=== PATIENT | male | born 1960 | race African-American/Black ===

== ENCOUNTER 2018-09-07 11:47 | Inpatient (IN) | payer OTHER ==
[2018-09-07 12:27] VITALS: BMI 40.4
--- NOTE | 2018-09-07 14:29 | HP ---
COWS - Scale Resting Pulse: 1= [place] 81-100 Sweatin= Chills/Flushing Restless Observation: 1= Difficult to Sit Still Pupil Size: 1= Pupils >than Normal Bone or Joint Aches: 2= Severe Diffuse Aches Runny Nose/ Eye Tearin= Runny Nose/Eyes GI Upset > 30mins: 2= Nausea/Diarrhea Tremor Observation: 2= Slight Tremor Visible Yawning Observation: 1= 1-2x During Session Anxiety or Irritability: 2=Irritable/Anxious Goose Flesh Skin: 0=Smooth Skin COWS Score: 15 CIWA Score Nausea/Vomitin Muscle Tremors: 2 Anxiety: 2 Agitation: 2 Paroxysmal Sweats: 1-Minimal Palms Moist Orientation: 0-Oriented Tacttile Disturbances: 1-Very Mild Itch/Numbness Auditory Disturbances: 0-None Visual Disturbances: 1-Very Mild Sensitivity Headache: 2-Mild CIWA-Ar Total Score: 13 - Admission Criteria [facility] Guidelines: Admission for Medically Managed Detox: Requires at least one of the followin. CIWA greater than 12 2. Seizures within the past 24 hours 3. Delirium tremens within the past 24 hours 4. Hallucinations within the past 24 hours 5. Acute intervention needed for co occurring medical disorder 6. Acute intervention needed for co occurring psychiatric disorder 7. Severe withdrawal that cannot be handled at a lower level of care (continued vomiting, continued diarrhea, abnormal vital signs) requiring intravenous medication and/or fluids 8. Patient presents the following: CIWA greater than 12 Admission Criteria Met: Admission criteria met Admission ROS S - [facility] Chief Complaint: i need help to stop using heroin,alcohol Allergies/Adverse Reactions: Allergies Allergy/AdvReac Type Severity Reaction Status Date / Time No Known Allergies Allergy Verified 09/07/18 14:29 History of Present Illness: this 58 years old male with heroin dependence,seeking detox,withdrawal symptom, last detox 2007 [facility] history of hypertension,type 2 dm, degenerative arthritis both knees ambulation with cane for 2 years pending on knee replacement longest period sobriety 2 years plan for outpatient program also alcoholism Exam Limitations: No Limitations - Ebola screening Have you traveled outside of the country in the last 21 days: No Have you had contact with anyone from an Ebola affected area: No Have you been sick,other than usual withdrawal symptoms: No Do you have a fever: No - Review of Systems Constitutional: Chills, Loss of Appetite, Malaise, Night Sweats, Changes in sleep, Weakness EENT: reports: Tearing, Nose Congestion Respiratory: reports: No Symptoms reported Cardiac: reports: No Symptoms Reported GI: reports: Diarrhea, Nausea, Poor Appetite, Vomiting : reports: No Symptoms Reported Musculoskeletal: reports: Back Pain, Joint Pain, Muscle Pain, Joint Stiffness Integumentary: reports: Dryness Neuro: reports: Headache, Tremors Endocrine: reports: No Symptoms Reported Hematology: reports: No Symptoms Reported Psychiatric: reports: No Sypmtoms Reported Other Systems: Reviewed and Negative Patient History - Patient Medical History Hx Anemia: No Hx Asthma: No Hx Chronic Obstructive Pulmonary Disease (COPD): No Hx Cancer: No Hx Cardiac Disorders: No Hx Congestive Heart Failure: No Hx Hypertension: Yes (on med) Hx Hypercholesterolemia: No Hx Pacemaker: No HX Cerebrovascular Accident: No Hx Seizures: No Hx Dementia: No Hx Diabetes: Yes (type 2 dm) Hx Gastrointestinal Disorders: No Hx Liver Disease: No Hx Genitourinary Disorders: No Hx Sexually Transmitted Disorders: No Hx Renal Disease (ESRD): No Hx Thyroid Disease: No Hx Human Immunodeficiency Virus (HIV): No (last 2017 negative) Hx Hepatitis C: No Hx Depression: No Hx Suicide Attempt: No Hx Bipolar Disorder: No Hx Schizophrenia: No Other Medical History: no suicidal,no homicidal - Patient Surgical History Past Surgical History: No - PPD History Previous Implant?: Yes Documented Results: Negative w/o proof Implanted On Prior [facility] Admission?: No PPD to be Administered?: Yes - Smoking Cessation Smoking history: Never smoked - Substance & Tx. History Hx Alcohol Use: Yes Hx Substance Use: Yes Substance Use Type: Alcohol, Heroin Hx Substance Use Treatment: Yes (2007 [facility]) - Substances Abused Heroin Route: Inhalation Frequency: Daily Amount used: 4 bags Age of first use: 18 Date of Last Use: 09/06/18 Alcohol Route: Oral Frequency: 1-3 times last 30 days Amount used: 1/5th of vodka/6packs of 16 ozs of beer Age of first use: 13 Date of Last Use: 09/06/18 Family Disease History - Family Disease History Family Disease History: Other: Father (alcohol,), Mother (alcohol, ) Admission Physical Exam S - Vital Signs Vital Signs: Vital Signs - 24 hr 09/07/18 11:58 Temperature 99.0 F Pulse Rate 81 Respiratory 18 Rate Blood Pressure 178/91 H - Physical General Appearance: Yes: Moderate Distress, Tremorous, Irritable, Sweating, Anxious HEENTM: Yes: Normal ENT Inspection, DARREN, Pharynx Normal Respiratory: Yes: Within Normal Limits, Lungs Clear, No Respiratory Distress Neck: Yes: Within Normal Limits, Supple, Trachea in good position Breast: Yes: Within Normal Limits Cardiology: Yes: Within Normal Limits, Regular Rhythm, Regular Rate, S1, S2 Abdominal: Yes: Within Normal Limits, Normal Bowel Sounds, Non Tender, Soft Genitourinary: Yes: Within Normal Limits Back: Yes: Within Normal Limits Musculoskeletal: Yes: Back pain, Joint Stiffness, Muscle Pain Extremities: Yes: Tremors Neurological: Yes: hand filer balance wheel II-XII NML intact, Fully Oriented, Alert, Motor Strength 5/5 Integumentary: Yes: Dry Lymphatic: Yes: Within Normal Limits - Diagnostic (1) Opioid dependence with withdrawal Current Visit: Yes Status: Acute (2) Alcohol dependence with uncomplicated withdrawal Current Visit: Yes Status: Acute (3) Use of cane as ambulatory aid Current Visit: Yes Status: Acute (4) Degenerative arthritis of knee Current Visit: Yes Status: Chronic Cleared for Admission [facility] - Detox or Rehab [facility] Level of Care: Medically Managed Detox Regimen/Protocol: Methadone/Librium S Breath Alcohol Content Breath Alcohol Content: 0 Urine Drug Screen - Results Drug Screen Negative: No Urine Drug Screen Results: OPI-Opiates, FEN-Fentanyl, BUP-Suboxone
[2018-09-07] MEDS ORDERED: P-EPHED 60MG/TRIPROLIDI 2.5MG TABLET PO PRN (14:55)
[2018-09-07] MEDS ORDERED: MAGNESIUM CITRATE 300 ML BOTTLE PO PRN (14:55)
[2018-09-07] MEDS ORDERED: IBUPROFEN 400 MG TABLET (FP) PO PRN (14:55)
[2018-09-07] MEDS ORDERED: ACETAMINOPHEN 325 MG TABLET (FP) PO PRN (14:55)
[2018-09-07] MEDS ORDERED: guaiFENesin/D-METHORPHAN HB 10 ML UNIT-DOSE CUPS PO PRN (14:55)
[2018-09-07] MEDS ORDERED: MENTHOL/PHENOL 1 EACH UD MM PRN (14:55)
[2018-09-07] MEDS ORDERED: MAGNESIUM HYDROX 2400MG/30ML ORAL SUSPENSION 30 ML CUP PO PRN (14:55)
[2018-09-07] MEDS ORDERED: chlordiazePOXIDE HCL 25 MG CAPSULE PO PRN (14:55)
[2018-09-07] MEDS ORDERED: LOPERAMIDE HCL 2 MG CAPSULE PO PRN (14:55)
[2018-09-07] MEDS ORDERED: hydrOXYzine PAMOATE 50 MG CAPSULE (FP) PO PRN (14:55)
[2018-09-07] MEDS ORDERED: MAG HYDROX/AL HYDROX/SIMETH 30 ML UNIT-DOSE CUP PO PRN (14:55)
[2018-09-07] MEDS ORDERED: IBUPROFEN 600 MG TABLET (FP) PO PRN (14:59)
[2018-09-07] MEDS ORDERED: METHADONE HCL 10 MG TABLET (FOR DETOX USE ONLY) PO ONE ×2 (15:15→23:00)
[2018-09-07] MEDS: amLODIPine BESYLATE 10 MG TABLET (FP) PO SCH (17:06)
[2018-09-07] MEDS: chlordiazePOXIDE HCL 25 MG CAPSULE PO SCH ×2 (17:06→22:28)
[2018-09-07] MEDS: LISINOPRIL 20 MG TABLET (FP) PO SCH (17:06)
[2018-09-07] MEDS: THIAMINE HCL 100 MG TABLET (FP) PO SCH (22:27)
[2018-09-07] MEDS: MELATONIN 5 MG TABLETS PO PRN (22:28)
[2018-09-07 22:45] LABS: URINE APPEARANCE CLEAR; URINE BILIRUBIN NEGATIVE (<2.0 mg/dL); URINE COLOR YELLOW; URINE GLUCOSE (UA) NEGATIVE (NEGATIVE); URINE KETONE NEGATIVE (NEGATIVE); URINE LEUK ESTERASE NEGATIVE (NEGATIVE); URINE NITRITE NEGATIVE (NEGATIVE); URINE PROTEIN NEGATIVE (NEGATIVE)
[2018-09-08] MEDS: chlordiazePOXIDE HCL 25 MG CAPSULE PO SCH ×4 (06:08→22:20)
[2018-09-08] MEDS: metFORMIN HCL 500 MG TABLET (FP) PO SCH ×2 (06:10→17:30)
[2018-09-08] MEDS ORDERED: METHADONE HCL 10 MG TABLET (FOR DETOX USE ONLY) PO SCH (10:00)
[2018-09-08 10:13] LABS: HEMATOCRIT 38.5 % (35.4-49); HEMOGLOBIN 13.1 GM/dL (11.7-16.9); MCH 30.7 pg (25.7-33.7); MCHC 33.9 g/dl (32.0-35.9); MEAN CELL VOLUME 90.5 fl (80-96); MEAN PLT VOLUME 8.4 fl (7.5-11.1); PLATELET COUNT 345 K/MM3 (134-434); RBC 4.26 M/mm3 (4.00-5.60); RDW 14.9 % (11.9-15.9); WHITE BLOOD COUNT 6.7 K/mm3 (4.0-10.0)
[2018-09-08] MEDS: LISINOPRIL 20 MG TABLET (FP) PO SCH (10:38)
[2018-09-08] MEDS: amLODIPine BESYLATE 10 MG TABLET (FP) PO SCH (10:38)
[2018-09-08] MEDS: PRENATAL VITAMINS W/ FOLIC ACID TABLET (FP) PO SCH (10:38)
[2018-09-08 11:40] LABS: ALBUMIN 3.6 g/dl (3.4-5.0); ALK PHOS 75 U/L (45-117); ANION GAP 11 MMOL/L (8-16); BILIRUBIN,TOTAL 0.3 mg/dL (0.2-1); BLOOD UREA NITROGEN 14 mg/dL (7-18); CALCIUM 9.2 mg/dL (8.5-10.1); CHLORIDE 104 mmol/L (98-107); CO2 27 mmol/L (21-32); CREATININE 1.1 mg/dL (0.55-1.3); GLUCOSE,RANDOM 113 mg/dL (74-106); POTASSIUM 4.3 mmol/L (3.5-5.1); SGOT/AST 16 U/L (15-37); SGPT/ALT 23 U/L (13-61); SODIUM 143 mmol/L (136-145); TOT PROT 7.4 g/dl (6.4-8.2)
--- NOTE | 2018-09-08 14:30 | PN ---
S CIWA - CIWA Score Nausea/Vomitin Muscle Tremors: 4-Moderate,w/Arms Extend Anxiety: 4-Mod. Anxious/Guarded Agitation: 4-Moderately Restless Paroxysmal Sweats: 3 Orientation: 0-Oriented Tacttile Disturbances: 0-None Auditory Disturbances: 0-None Visual Disturbances: 0-None Headache: 0-None Present CIWA-Ar Total Score: 17 [facility] COWS - Scale Resting Pulse: 0= [place] 80 or Below Sweatin=Flushed/Facial Moisture Restless Observation: 3= Extraneous Movement Pupil Size: 0= Normal to Room Light Bone or Joint Aches: 2= Severe Diffuse Aches Runny Nose/ Eye Tearin= Runny Nose/Eyes GI Upset > 30mins: 3= Vomiting/Diarrhea Tremor Observation of Outstretched Hands: 2= Slight Tremor Visible Yawning Observation: 0= None Anxiety or Irritability: 2=Irritable/Anxious Goose Flesh Skin: 0=Smooth Skin COWS Score: 16 S Progress Note (SOAP) Subjective: Stomach ache, interrupted sleep Objective: 09/08/18 14:29 Last Vital Signs Temp Pulse Resp BP Pulse Ox 97.4 F L 72 18 117/66 09/08/18 09:30 09/08/18 09:30 09/08/18 09:30 09/08/18 09:30 Laboratory Tests 09/07/18 09/07/18 09/07/18 12:45 15:45 17:03 WBC RBC Hgb Hct MCV MCH MCHC RDW Plt Count MPV Sodium Potassium Chloride Carbon Dioxide Anion Gap BUN Creatinine Creat Clearance w eGFR POC Glucometer 158 105 Random Glucose Calcium Total Bilirubin AST ALT Alkaline Phosphatase Total Protein Albumin Urine Color Yellow Urine Appearance Clear Urine pH 6.0 Ur Specific [place] 1.023 Urine Protein Negative Urine Glucose (UA) Negative Urine Ketones Negative Urine Blood Negative Urine Nitrite Negative Urine Bilirubin Negative Urine Urobilinogen 2.0 Ur Leukocyte Esterase Negative 09/08/18 09/08/18 09/08/18 06:00 06:00 06:07 WBC 6.7 RBC 4.26 Hgb 13.1 Hct 38.5 MCV 90.5 MCH 30.7 MCHC 33.9 RDW 14.9 Plt Count 345 MPV 8.4 Sodium 143 Potassium 4.3 Chloride 104 Carbon Dioxide 27 Anion Gap 11 BUN 14 Creatinine 1.1 Creat Clearance w eGFR > 60 POC Glucometer 115 Random Glucose 113 H Calcium 9.2 Total Bilirubin 0.3 AST 16 ALT 23 Alkaline Phosphatase 75 Total Protein 7.4 Albumin 3.6 Urine Color Urine Appearance Urine pH Ur Specific [place] Urine Protein Urine Glucose (UA) Urine Ketones Urine Blood Urine Nitrite Urine Bilirubin Urine Urobilinogen Ur Leukocyte Esterase Labs reviewed Assessment: 09/08/18 14:29 Withdrawal symptoms Plan: Continue detox Encouraged PO water intake
[2018-09-08] MEDS: THIAMINE HCL 100 MG TABLET (FP) PO SCH (22:20)
[2018-09-08] MEDS: MELATONIN 5 MG TABLETS PO PRN (22:21)
[2018-09-09] MEDS: chlordiazePOXIDE HCL 25 MG CAPSULE PO SCH ×2 (05:55→10:38)
[2018-09-09] MEDS: metFORMIN HCL 500 MG TABLET (FP) PO SCH ×2 (06:02→17:49)
[2018-09-09] MEDS: METHADONE HCL 5 MG TABLET (FOR DETOX USE ONLY) PO SCH (10:37)
[2018-09-09] MEDS: LISINOPRIL 20 MG TABLET (FP) PO SCH (10:39)
[2018-09-09] MEDS: amLODIPine BESYLATE 10 MG TABLET (FP) PO SCH (10:39)
[2018-09-09] MEDS: PRENATAL VITAMINS W/ FOLIC ACID TABLET (FP) PO SCH (10:39)
--- NOTE | 2018-09-09 11:17 | PN ---
S CIWA - CIWA Score Nausea/Vomitin-No Nausea/No Vomiting Muscle Tremors: 4-Moderate,w/Arms Extend Anxiety: 4-Mod. Anxious/Guarded Agitation: 4-Moderately Restless Paroxysmal Sweats: 1-Minimal Palms Moist Orientation: 0-Oriented Tacttile Disturbances: 0-None Auditory Disturbances: 0-None Visual Disturbances: 0-None Headache: 0-None Present CIWA-Ar Total Score: 13 S COWS - Scale Resting Pulse: 0= [place] 80 or Below Sweatin= Chills/Flushing Restless Observation: 3= Extraneous Movement Pupil Size: 0= Normal to Room Light Bone or Joint Aches: 1= Mild Discomfort Runny Nose/ Eye Tearin= None GI Upset > 30mins: 0= None Tremor Observation of Outstretched Hands: 2= Slight Tremor Visible Yawning Observation: 2= >3x During Session Anxiety or Irritability: 2=Irritable/Anxious Goose Flesh Skin: 0=Smooth Skin COWS Score: 11 S Progress Note (SOAP) Subjective: PT C/O ANXIETY, SWEATS, TREMORS, YAWNING Objective: 09/09/18 11:17 Vital Signs 09/09/18 09/09/18 09/09/18 03:30 06:14 09:40 Temperature 97.3 F L 99.1 F Pulse Rate 56 L 73 Respiratory 18 20 16 Rate Blood Pressure 136/82 123/72 Laboratory Tests 09/07/18 09/07/18 09/07/18 12:45 15:45 17:03 WBC RBC Hgb Hct MCV MCH MCHC RDW Plt Count MPV Sodium Potassium Chloride Carbon Dioxide Anion Gap BUN Creatinine Creat Clearance w eGFR POC Glucometer 158 105 Random Glucose Calcium Total Bilirubin AST ALT Alkaline Phosphatase Total Protein Albumin Urine Color Yellow Urine Appearance Clear Urine pH 6.0 Ur Specific [place] 1.023 Urine Protein Negative Urine Glucose (UA) Negative Urine Ketones Negative Urine Blood Negative Urine Nitrite Negative Urine Bilirubin Negative Urine Urobilinogen 2.0 Ur Leukocyte Esterase Negative RPR Titer 09/08/18 09/08/18 09/08/18 06:00 06:00 06:00 WBC 6.7 RBC 4.26 Hgb 13.1 Hct 38.5 MCV 90.5 MCH 30.7 MCHC 33.9 RDW 14.9 Plt Count 345 MPV 8.4 Sodium 143 Potassium 4.3 Chloride 104 Carbon Dioxide 27 Anion Gap 11 BUN 14 Creatinine 1.1 Creat Clearance w eGFR > 60 POC Glucometer Random Glucose 113 H Calcium 9.2 Total Bilirubin 0.3 AST 16 ALT 23 Alkaline Phosphatase 75 Total Protein 7.4 Albumin 3.6 Urine Color Urine Appearance Urine pH Ur Specific [place] Urine Protein Urine Glucose (UA) Urine Ketones Urine Blood Urine Nitrite Urine Bilirubin Urine Urobilinogen Ur Leukocyte Esterase RPR Titer Nonreactive 09/08/18 09/09/18 06:07 05:54 WBC RBC Hgb Hct MCV MCH MCHC RDW Plt Count MPV Sodium Potassium Chloride Carbon Dioxide Anion Gap BUN Creatinine Creat Clearance w eGFR POC Glucometer 115 102 Random Glucose Calcium Total Bilirubin AST ALT Alkaline Phosphatase Total Protein Albumin Urine Color Urine Appearance Urine pH Ur Specific [place] Urine Protein Urine Glucose (UA) Urine Ketones Urine Blood Urine Nitrite Urine Bilirubin Urine Urobilinogen Ur Leukocyte Esterase RPR Titer Assessment: 09/09/18 11:18 WITHDRAWAL SX Plan: CONTINUE DETOX INCREASE PO FLUIDS.
[2018-09-09] MEDS: chlordiazePOXIDE 5 MG CAPSULE PO SCH ×2 (17:48→22:14)
[2018-09-09] MEDS: THIAMINE HCL 100 MG TABLET (FP) PO SCH (22:13)
[2018-09-09] MEDS: MELATONIN 5 MG TABLETS PO PRN (22:14)
[2018-09-10] MEDS: chlordiazePOXIDE 5 MG CAPSULE PO SCH ×2 (06:00→10:49)
[2018-09-10] MEDS: metFORMIN HCL 500 MG TABLET (FP) PO SCH ×2 (06:05→17:35)
[2018-09-10] MEDS: PRENATAL VITAMINS W/ FOLIC ACID TABLET (FP) PO SCH (10:50)
[2018-09-10] MEDS: LISINOPRIL 20 MG TABLET (FP) PO SCH (10:50)
[2018-09-10] MEDS: METHADONE HCL 5 MG TABLET (FOR DETOX USE ONLY) PO SCH (10:50)
[2018-09-10] MEDS: amLODIPine BESYLATE 10 MG TABLET (FP) PO SCH (10:50)
--- NOTE | 2018-09-10 14:09 | PN ---
[facility] Progress Note (SOAP) Subjective: Chills, yawning, runny nose, interrupted sleep Objective: 09/10/18 14:06 Last Vital Signs Temp Pulse Resp BP Pulse Ox 97.5 F L 75 18 145/88 09/10/18 09:55 09/10/18 09:55 09/10/18 09:55 09/10/18 09:55 Elevated b/p: 145/88 (h/o htn, on medication) Laboratory Tests 09/07/18 09/07/18 09/07/18 12:45 15:45 17:03 WBC RBC Hgb Hct MCV MCH MCHC RDW Plt Count MPV Sodium Potassium Chloride Carbon Dioxide Anion Gap BUN Creatinine Creat Clearance w eGFR POC Glucometer 158 105 Random Glucose Calcium Total Bilirubin AST ALT Alkaline Phosphatase Total Protein Albumin Urine Color Yellow Urine Appearance Clear Urine pH 6.0 Ur Specific [place] 1.023 Urine Protein Negative Urine Glucose (UA) Negative Urine Ketones Negative Urine Blood Negative Urine Nitrite Negative Urine Bilirubin Negative Urine Urobilinogen 2.0 Ur Leukocyte Esterase Negative RPR Titer 09/08/18 09/08/18 09/08/18 06:00 06:00 06:00 WBC 6.7 RBC 4.26 Hgb 13.1 Hct 38.5 MCV 90.5 MCH 30.7 MCHC 33.9 RDW 14.9 Plt Count 345 MPV 8.4 Sodium 143 Potassium 4.3 Chloride 104 Carbon Dioxide 27 Anion Gap 11 BUN 14 Creatinine 1.1 Creat Clearance w eGFR > 60 POC Glucometer Random Glucose 113 H Calcium 9.2 Total Bilirubin 0.3 AST 16 ALT 23 Alkaline Phosphatase 75 Total Protein 7.4 Albumin 3.6 Urine Color Urine Appearance Urine pH Ur Specific [place] Urine Protein Urine Glucose (UA) Urine Ketones Urine Blood Urine Nitrite Urine Bilirubin Urine Urobilinogen Ur Leukocyte Esterase RPR Titer Nonreactive 09/08/18 09/09/18 09/09/18 06:07 05:54 16:17 WBC RBC Hgb Hct MCV MCH MCHC RDW Plt Count MPV Sodium Potassium Chloride Carbon Dioxide Anion Gap BUN Creatinine Creat Clearance w eGFR POC Glucometer 115 102 96 Random Glucose Calcium Total Bilirubin AST ALT Alkaline Phosphatase Total Protein Albumin Urine Color Urine Appearance Urine pH Ur Specific [place] Urine Protein Urine Glucose (UA) Urine Ketones Urine Blood Urine Nitrite Urine Bilirubin Urine Urobilinogen Ur Leukocyte Esterase RPR Titer 09/10/18 06:04 WBC RBC Hgb Hct MCV MCH MCHC RDW Plt Count MPV Sodium Potassium Chloride Carbon Dioxide Anion Gap BUN Creatinine Creat Clearance w eGFR POC Glucometer 82 Random Glucose Calcium Total Bilirubin AST ALT Alkaline Phosphatase Total Protein Albumin Urine Color Urine Appearance Urine pH Ur Specific [place] Urine Protein Urine Glucose (UA) Urine Ketones Urine Blood Urine Nitrite Urine Bilirubin Urine Urobilinogen Ur Leukocyte Esterase RPR Titer Labs reviewed 09/10/18 14:08 Assessment: 09/10/18 14:07 Withdrawal symptoms Plan: Continue detox Encouraged PO water intake
[2018-09-10] MEDS: chlordiazePOXIDE HCL 10 MG CAPSULE PO SCH ×2 (17:35→22:09)
[2018-09-10] MEDS: THIAMINE HCL 100 MG TABLET (FP) PO SCH (22:09)
[2018-09-10] MEDS: MELATONIN 5 MG TABLETS PO PRN (22:10)
[2018-09-11] MEDS: chlordiazePOXIDE HCL 10 MG CAPSULE PO SCH ×2 (05:19→10:25)
[2018-09-11] MEDS: metFORMIN HCL 500 MG TABLET (FP) PO SCH ×2 (07:38→17:34)
[2018-09-11] MEDS ORDERED: METHADONE HCL 10 MG TABLET (FOR DETOX USE ONLY) PO SCH (10:00)
[2018-09-11] MEDS: LISINOPRIL 20 MG TABLET (FP) PO SCH (10:25)
[2018-09-11] MEDS: PRENATAL VITAMINS W/ FOLIC ACID TABLET (FP) PO SCH (10:28)
[2018-09-11] MEDS: amLODIPine BESYLATE 10 MG TABLET (FP) PO SCH (10:28)
--- NOTE | 2018-09-11 11:55 | PN ---
[facility] Progress Note (SOAP) Subjective: feeling better no body aches no tremor less sweat discuss DM diet Objective: 09/11/18 11:54 Vital Signs Temperature 97.2 F L 09/11/18 09:17 Pulse Rate 78 09/11/18 09:17 Respiratory Rate 18 12 09:17 Blood Pressure 137/92 09/11/18 09:17 O2 Sat by Pulse Oximetry (%) Laboratory Last Values WBC 6.7 K/mm3 (4.0-10.0) 09/08/18 06:00 RBC 4.26 M/mm3 (4.00-5.60) 09/08/18 06:00 Hgb 13.1 GM/dL (11.7-16.9) 09/08/18 06:00 Hct 38.5 % (35.4-49) 09/08/18 06:00 MCV 90.5 fl (80-96) 09/08/18 06:00 MCH 30.7 pg (25.7-33.7) 09/08/18 06:00 MCHC 33.9 g/dl (32.0-35.9) 09/08/18 06:00 RDW 14.9 % (11.9-15.9) 09/08/18 06:00 Plt Count 345 K/MM3 (134-434) 09/08/18 06:00 MPV 8.4 fl (7.5-11.1) 09/08/18 06:00 Sodium 143 mmol/L (136-145) 09/08/18 06:00 Potassium 4.3 mmol/L (3.5-5.1) 09/08/18 06:00 Chloride 104 mmol/L (98-107) 09/08/18 06:00 Carbon Dioxide 27 mmol/L (21-32) 09/08/18 06:00 Anion Gap 11 MMOL/L (8-16) 09/08/18 06:00 BUN 14 mg/dL (7-18) 09/08/18 06:00 Creatinine 1.1 mg/dL (0.55-1.3) 09/08/18 06:00 Creat Clearance w eGFR > 60 (>60) 09/08/18 06:00 POC Glucometer 107 UNITS (80-120) 09/11/18 05:19 Random Glucose 113 mg/dL (74-106) H 09/08/18 06:00 Calcium 9.2 mg/dL (8.5-10.1) 09/08/18 06:00 Total Bilirubin 0.3 mg/dL (0.2-1) 09/08/18 06:00 AST 16 U/L (15-37) 09/08/18 06:00 ALT 23 U/L (13-61) 09/08/18 06:00 Alkaline Phosphatase 75 U/L (45-117) 09/08/18 06:00 Total Protein 7.4 g/dl (6.4-8.2) 09/08/18 06:00 Albumin 3.6 g/dl (3.4-5.0) 09/08/18 06:00 Urine Color Yellow 09/07/18 12:45 Urine Appearance Clear 09/07/18 12:45 Urine pH 6.0 (5.0-8.0) 09/07/18 12:45 Ur Specific [place] 1.023 (1.010-1.035) 09/07/18 12:45 Urine Protein Negative (NEGATIVE) 09/07/18 12:45 Urine Glucose (UA) Negative (NEGATIVE) 09/07/18 12:45 Urine Ketones Negative (NEGATIVE) 09/07/18 12:45 Urine Blood Negative (NEGATIVE) 09/07/18 12:45 Urine Nitrite Negative (NEGATIVE) 09/07/18 12:45 Urine Bilirubin Negative (<2.0 mg/dL) 09/07/18 12:45 Urine Urobilinogen 2.0 mg/dL (0.2-1.0) 09/07/18 12:45 Ur Leukocyte Esterase Negative (NEGATIVE) 09/07/18 12:45 RPR Titer Nonreactive (NONREACTIVE) 09/08/18 06:00 lab noted Assessment: 09/11/18 11:55 mild withdrawal sx Plan: medically supervised detox
[2018-09-11] MEDS: THIAMINE HCL 100 MG TABLET (FP) PO SCH (22:14)
[2018-09-12] MEDS ORDERED: METHADONE HCL 5 MG TABLET (FOR DETOX USE ONLY) PO SCH (06:00)
[2018-09-12] MEDS: metFORMIN HCL 500 MG TABLET (FP) PO SCH (06:14)
--- NOTE | 2018-09-12 08:33 | DS ---
[facility] Detox Discharge Summary Admission Date: 09/07/18 Discharge Date: 09/12/18 - History Present History: Opioid Dependence Additional Comments: 58 years old male admitted on 09/07/18 for opiate withdrawal stability completed opiate detox regimen tolerate well alert no acute distress - Physical Exam Results Vital Signs: Vital Signs Temperature 97.9 F 09/12/18 06:20 Pulse Rate 66 09/12/18 06:20 Respiratory Rate 18 09/12/18 06:30 Blood Pressure 122/69 09/12/18 06:20 O2 Sat by Pulse Oximetry (%) Pertinent Admission Physical Exam Findings: opiate withdrawal sx Vital Signs Temperature 97.1 F L 09/12/18 09:32 Pulse Rate 73 09/12/18 09:32 Respiratory Rate 18 09/12/18 09:32 Blood Pressure 130/87 09/12/18 09:32 O2 Sat by Pulse Oximetry (%) Laboratory Last Values WBC 6.7 K/mm3 (4.0-10.0) 09/08/18 06:00 RBC 4.26 M/mm3 (4.00-5.60) 09/08/18 06:00 Hgb 13.1 GM/dL (11.7-16.9) 09/08/18 06:00 Hct 38.5 % (35.4-49) 09/08/18 06:00 MCV 90.5 fl (80-96) 09/08/18 06:00 MCH 30.7 pg (25.7-33.7) 09/08/18 06:00 MCHC 33.9 g/dl (32.0-35.9) 09/08/18 06:00 RDW 14.9 % (11.9-15.9) 09/08/18 06:00 Plt Count 345 K/MM3 (134-434) 09/08/18 06:00 MPV 8.4 fl (7.5-11.1) 09/08/18 06:00 Sodium 143 mmol/L (136-145) 09/08/18 06:00 Potassium 4.3 mmol/L (3.5-5.1) 09/08/18 06:00 Chloride 104 mmol/L (98-107) 09/08/18 06:00 Carbon Dioxide 27 mmol/L (21-32) 09/08/18 06:00 Anion Gap 11 MMOL/L (8-16) 09/08/18 06:00 BUN 14 mg/dL (7-18) 09/08/18 06:00 Creatinine 1.1 mg/dL (0.55-1.3) 09/08/18 06:00 Creat Clearance w eGFR > 60 (>60) 09/08/18 06:00 POC Glucometer 126 UNITS (80-120) 09/12/18 05:49 Random Glucose 113 mg/dL (74-106) H 09/08/18 06:00 Calcium 9.2 mg/dL (8.5-10.1) 09/08/18 06:00 Total Bilirubin 0.3 mg/dL (0.2-1) 09/08/18 06:00 AST 16 U/L (15-37) 09/08/18 06:00 ALT 23 U/L (13-61) 09/08/18 06:00 Alkaline Phosphatase 75 U/L (45-117) 09/08/18 06:00 Total Protein 7.4 g/dl (6.4-8.2) 09/08/18 06:00 Albumin 3.6 g/dl (3.4-5.0) 09/08/18 06:00 Urine Color Yellow 09/07/18 12:45 Urine Appearance Clear 09/07/18 12:45 Urine pH 6.0 (5.0-8.0) 09/07/18 12:45 Ur Specific [place] 1.023 (1.010-1.035) 09/07/18 12:45 Urine Protein Negative (NEGATIVE) 09/07/18 12:45 Urine Glucose (UA) Negative (NEGATIVE) 09/07/18 12:45 Urine Ketones Negative (NEGATIVE) 09/07/18 12:45 Urine Blood Negative (NEGATIVE) 09/07/18 12:45 Urine Nitrite Negative (NEGATIVE) 09/07/18 12:45 Urine Bilirubin Negative (<2.0 mg/dL) 09/07/18 12:45 Urine Urobilinogen 2.0 mg/dL (0.2-1.0) 09/07/18 12:45 Ur Leukocyte Esterase Negative (NEGATIVE) 09/07/18 12:45 RPR Titer Nonreactive (NONREACTIVE) 09/08/18 06:00 lab noted - Treatment Hospital Course: Detox Protocol Followed, Detoxed Safely, Responded well, Discharged Condition Good, Rehab Referral Accepted Patient has Accepted a Rehab Referral to: Dr. Prince - Medication Discharge Medications: Ambulatory Orders Amlodipine Besylate [Norvasc -] 10 mg PO DAILY 09/07/18 Lisinopril [Prinivil] 20 mg PO DAILY 09/07/18 Metformin HCl [Glucophage] 500 mg PO BID 09/07/18 - Diagnosis (1) Opioid dependence with withdrawal Status: Acute (2) HTN (hypertension), benign Status: Chronic (3) Type 2 diabetes mellitus with hyperglycemia Status: Chronic Qualifiers: Diabetes mellitus intermediate teacher insulin use: without intermediate teacher use Qualified Code(s): E11.65 - Type 2 diabetes mellitus with hyperglycemia (4) Use of cane as ambulatory aid Status: Chronic - AMA Did Patient Leave Against Medical Advice: No
[2018-09-12] MEDS: PRENATAL VITAMINS W/ FOLIC ACID TABLET (FP) PO SCH (09:27)
[2018-09-12] MEDS: amLODIPine BESYLATE 10 MG TABLET (FP) PO SCH (09:27)
[2018-09-12] MEDS: LISINOPRIL 20 MG TABLET (FP) PO SCH (09:27)
[2018-09-12 09:33] VITALS: BP 130/87; PULSE 73; TEMP 97.1
== END 2018-09-12 09:46 | disposition home or self-care (01) | DRG 773 ==
LOC: YASAS 11:47 → Y3N 14:56
PROC: HZ2ZZZZ Detoxification Services for Substance Abuse Treatment (ICD-10-PCS; principal; 2018-09-07)
DX: F11.23 Opioid dependence with withdrawal (principal); F10.230 Alcohol dependence with withdrawal, uncomplicated; I10 Essential (primary) hypertension; E11.65 Type 2 diabetes mellitus with hyperglycemia; Z79.84 Long term (current) use of oral hypoglycemic drugs; M17.11 Unilateral primary osteoarthritis, right knee; M17.12 Unilateral primary osteoarthritis, left knee; R26.89 Other abnormalities of gait and mobility; Z99.89 Dependence on other enabling machines and devices
CPT/HCPCS: 36415; 80053; 81003; 82962; 85027; 86593

== ENCOUNTER 2022-09-09 10:40 | Inpatient (IN) | payer OTHER ==
[2022-09-09] MEDS ORDERED: LOPERAMIDE HCL 2 MG CAPSULE PO PRN (13:28)
[2022-09-09] MEDS ORDERED: diazePAM 5 MG TABLET PO PRN (13:28)
[2022-09-09] MEDS ORDERED: IBUPROFEN 600 MG TABLET (FP) PO PRN (13:28)
[2022-09-09] MEDS ORDERED: MAG HYDROX/AL HYDROX/SIMETH 30 ML UNIT-DOSE CUP PO PRN (13:28)
[2022-09-09] MEDS ORDERED: NALOXONE HCL (KLOXXADO) 8 MG SPRAY NS PRN (13:28)
[2022-09-09] MEDS ORDERED: ONDANSETRON *ODT* 4 MG TABLET SL PRN (13:28)
[2022-09-09] MEDS ORDERED: POLYETHYLENE GLYCOL (HEALTHYLAX) 3350 17 GM PACKET PO PRN (13:28)
[2022-09-09] MEDS ORDERED: DICYCLOMINE HCL 10 MG CAPSULE PO PRN (13:28)
[2022-09-09] MEDS ORDERED: MAGNESIUM HYDROX 2400MG/30ML ORAL SUSPENSION 30 ML CUP PO PRN (13:28)
[2022-09-09] MEDS ORDERED: BISMUTH SUBSALICYLATE 262 MG/15 ML BTL PO PRN (13:28)
[2022-09-09] MEDS ORDERED: BENZOCAINE/MENTHOL (CHLORASEPTIC ) LOZENGE MM PRN (13:28)
[2022-09-09] MEDS ORDERED: ACETAMINOPHEN 325 MG TABLET (FP) PO PRN ×2 (13:28)
[2022-09-09] MEDS ORDERED: hydrOXYzine PAMOATE 25 MG CAPSULE (FP) PO PRN (13:28)
[2022-09-09 14:09] VITALS: BMI 43.0
[2022-09-09] MEDS: diazePAM 5 MG TABLET PO SCH ×2 (17:26→22:05)
[2022-09-09] MEDS: metFORMIN HCL 500 MG TABLET (FP) PO SCH (17:27)
[2022-09-09] MEDS: PRENATAL VITAMINS W/ FOLIC ACID TABLET (FP) PO SCH (17:33)
[2022-09-09] MEDS: MELATONIN 5 MG TABLETS PO SCH (22:05)
[2022-09-09] MEDS: THIAMINE HCL 100 MG TABLET (FP) PO SCH (22:05)
[2022-09-10] MEDS: diazePAM 5 MG TABLET PO SCH ×4 (05:17→22:17)
[2022-09-10] MEDS: metFORMIN HCL 500 MG TABLET (FP) PO SCH ×2 (06:57→17:55)
[2022-09-10] MEDS: amLODIPine BESYLATE 10 MG TABLET (FP) PO SCH (10:20)
[2022-09-10] MEDS: PRENATAL VITAMINS W/ FOLIC ACID TABLET (FP) PO SCH (10:20)
[2022-09-10] MEDS: LISINOPRIL 20 MG TABLET PO SCH (10:20)
[2022-09-10 10:43] LABS: HEMATOCRIT 31.9 % (35.4-49); HEMOGLOBIN 10.3 GM/dL (11.7-16.9); MCH 30.5 pg (25.7-33.7); MCHC 32.4 g/dl (32.0-35.9); MEAN CELL VOLUME 94.1 fl (80-96); MEAN PLT VOLUME 7.3 fl (7.5-11.1); PLATELET COUNT 246 10^3/uL (134-434); RBC 3.39 M/mm3 (4.00-5.60); RDW 17.3 % (11.9-15.9); WHITE BLOOD COUNT 5.7 K/mm3 (4.0-10.0)
[2022-09-10] MEDS ORDERED: methaDONE HCL 10 MG TABLET PO SCH (11:45)
[2022-09-10 11:59] LABS: ALBUMIN 2.6 g/dl (3.4-5.0); BILIRUBIN,TOTAL 0.6 mg/dL (0.2-1); BLOOD UREA NITROGEN 15.2 mg/dL (7-18); CALCIUM 8.8 mg/dL (8.5-10.1); CREATININE 1.1 mg/dL (0.55-1.3); TOT PROT 6.2 g/dl (6.4-8.2)
[2022-09-10] MEDS: methaDONE 40 MG, methaDONE 30 MG PO SCH (11:59)
[2022-09-10] MEDS: LACTULOSE 20 GM/30 ML UDC (FOR ORAL USE ONLY) PO SCH ×3 (14:56→22:16)
[2022-09-10] MEDS: THIAMINE HCL 100 MG TABLET (FP) PO SCH (22:16)
[2022-09-10] MEDS: MELATONIN 5 MG TABLETS PO SCH (22:16)
[2022-09-11] MEDS: diazePAM 5 MG TABLET PO SCH ×3 (05:34→22:30)
[2022-09-11] MEDS: methaDONE 40 MG, methaDONE 30 MG PO SCH (05:34)
[2022-09-11] MEDS: metFORMIN HCL 500 MG TABLET (FP) PO SCH ×2 (06:38→17:56)
[2022-09-11] MEDS: LACTULOSE 20 GM/30 ML UDC (FOR ORAL USE ONLY) PO SCH ×4 (10:21→22:34)
[2022-09-11] MEDS: amLODIPine BESYLATE 10 MG TABLET (FP) PO SCH (10:22)
[2022-09-11] MEDS: LISINOPRIL 20 MG TABLET PO SCH (10:22)
[2022-09-11] MEDS: PRENATAL VITAMINS W/ FOLIC ACID TABLET (FP) PO SCH (10:22)
[2022-09-11] MEDS: THIAMINE HCL 100 MG TABLET (FP) PO SCH (22:29)
[2022-09-11] MEDS: MELATONIN 5 MG TABLETS PO SCH (22:30)
[2022-09-11] MEDS: METHOCARBAMOL 500 MG TABLET PO PRN (22:32)
[2022-09-12] MEDS: diazePAM 5 MG TABLET PO SCH ×2 (05:43→18:18)
[2022-09-12] MEDS: methaDONE 40 MG, methaDONE 30 MG PO SCH (05:44)
[2022-09-12] MEDS: METHOCARBAMOL 500 MG TABLET PO PRN ×2 (05:46→22:21)
[2022-09-12] MEDS: IBUPROFEN 400 MG TABLET (FP) PO PRN (05:46)
[2022-09-12] MEDS: metFORMIN HCL 500 MG TABLET (FP) PO SCH ×2 (07:23→18:18)
[2022-09-12] MEDS: PRENATAL VITAMINS W/ FOLIC ACID TABLET (FP) PO SCH (10:18)
[2022-09-12] MEDS: amLODIPine BESYLATE 10 MG TABLET (FP) PO SCH (10:18)
[2022-09-12] MEDS: LACTULOSE 20 GM/30 ML UDC (FOR ORAL USE ONLY) PO SCH ×4 (10:18→22:20)
[2022-09-12] MEDS: LISINOPRIL 20 MG TABLET PO SCH (10:18)
[2022-09-12 17:09] VITALS: RESP 18
[2022-09-12] MEDS: THIAMINE HCL 100 MG TABLET (FP) PO SCH (22:20)
[2022-09-12] MEDS: MELATONIN 5 MG TABLETS PO SCH (22:20)
[2022-09-13] MEDS: methaDONE 40 MG, methaDONE 30 MG PO SCH (05:46)
[2022-09-13] MEDS: IBUPROFEN 400 MG TABLET (FP) PO PRN (05:49)
[2022-09-13] MEDS: METHOCARBAMOL 500 MG TABLET PO PRN (05:49)
[2022-09-13] MEDS ORDERED: diazePAM 5 MG TABLET PO ONE (06:00)
[2022-09-13] MEDS: metFORMIN HCL 500 MG TABLET (FP) PO SCH (07:03)
[2022-09-13 09:21] VITALS: TEMP 96.8
[2022-09-13] MEDS: amLODIPine BESYLATE 10 MG TABLET (FP) PO SCH (10:24)
[2022-09-13] MEDS: PRENATAL VITAMINS W/ FOLIC ACID TABLET (FP) PO SCH (10:24)
[2022-09-13] MEDS: LISINOPRIL 20 MG TABLET PO SCH (10:25)
[2022-09-13] MEDS: LACTULOSE 20 GM/30 ML UDC (FOR ORAL USE ONLY) PO SCH (10:25)
[2022-09-13 12:50] VITALS: BP 149/80; PULSE 99
== END 2022-09-13 14:38 | disposition other institution (70) | DRG 773 ==
LOC: YASAS 10:40 → Y3N 13:35
PROVIDERS: ADMIT Allergy & Immunology; ATTEND Surgery
PROC: HZ2ZZZZ Detoxification Services for Substance Abuse Treatment (ICD-10-PCS; principal; 2022-09-09)
DX: F10.230 Alcohol dependence with withdrawal, uncomplicated (principal); F11.20 Opioid dependence, uncomplicated; F20.9 Schizophrenia, unspecified; E72.20 Disorder of urea cycle metabolism, unspecified; E11.65 Type 2 diabetes mellitus with hyperglycemia; Z79.84 Long term (current) use of oral hypoglycemic drugs; I10 Essential (primary) hypertension; M17.11 Unilateral primary osteoarthritis, right knee; Z99.89 Dependence on other enabling machines and devices; Z87.891 Personal history of nicotine dependence
CPT/HCPCS: 36415; 80053; 82140; 82962; 85027; 86780; 93005; 93010; C9803-CS; U0003; U0005

== ENCOUNTER 2022-09-13 16:47 | Inpatient (IN) | payer OTHER ==
[2022-09-13 19:44] VITALS: BMI 46.0
[2022-09-13] MEDS ORDERED: MAG HYDROX/AL HYDROX/SIMETH 30 ML UNIT-DOSE CUP PO PRN (20:38)
[2022-09-13] MEDS ORDERED: P-EPHED 60MG/TRIPROLIDI 2.5MG TABLET PO PRN (20:38)
[2022-09-13] MEDS ORDERED: MAGNESIUM HYDROX 2400MG/30ML ORAL SUSPENSION 30 ML CUP PO PRN (20:38)
[2022-09-13] MEDS ORDERED: LOPERAMIDE HCL 2 MG CAPSULE PO PRN (20:38)
[2022-09-13] MEDS ORDERED: POLYETHYLENE GLYCOL (HEALTHYLAX) 3350 17 GM PACKET PO PRN (20:38)
[2022-09-13] MEDS ORDERED: BENZOCAINE/MENTHOL (CHLORASEPTIC ) LOZENGE MM PRN (20:38)
[2022-09-13] MEDS ORDERED: guaiFENesin 200 MG/10 ML 10 ML UNIT-DOSE CUPS PO PRN (20:38)
[2022-09-14] MEDS: MELATONIN 5 MG TABLETS PO SCH ×2 (00:05→21:04)
[2022-09-14] MEDS: THIAMINE HCL 100 MG TABLET (FP) PO SCH ×2 (00:05→21:04)
[2022-09-14] MEDS ORDERED: methaDONE HCL 10 MG TABLET PO SCH (08:30)
[2022-09-14] MEDS ORDERED: methaDONE 40 MG, methaDONE 30 MG PO ONE (09:00)
[2022-09-14] MEDS: PRENATAL VITAMINS W/ FOLIC ACID TABLET (FP) PO SCH (10:10)
[2022-09-14 16:42] LABS: EPI CELLS 6 /uL (0-25.1); HYALINE CASTS 0 /uL (0-3.1); PH,URINE 5.5 (5.0-8.0); URINE APPEARANCE CLOUDY; URINE BACTERIA 43 /uL (0-1359); URINE BILIRUBIN NEGATIVE (NEGATIVE); URINE COLOR DK YELLOW; URINE GLUCOSE (UA) 3+ (NEGATIVE); URINE KETONE TRACE (NEGATIVE); URINE LEUK ESTERASE NEGATIVE (NEGATIVE); URINE NITRITE NEGATIVE (NEGATIVE); URINE PROTEIN TRACE (NEGATIVE); URINE RBC 4463 /uL (0-23.9); URINE WBC 22 /uL (0-25.8)
[2022-09-14 18:56] LABS: URINE CRYSTALS FEW CACLIUM OXALATES /hpf
[2022-09-14] MEDS: IBUPROFEN 400 MG TABLET (FP) PO PRN (21:05)
[2022-09-15] MEDS: methaDONE 40 MG, methaDONE 30 MG PO SCH (06:02)
[2022-09-15] MEDS: IBUPROFEN 400 MG TABLET (FP) PO PRN (06:04)
[2022-09-15] MEDS: PRENATAL VITAMINS W/ FOLIC ACID TABLET (FP) PO SCH (09:48)
[2022-09-15] MEDS: MELATONIN 5 MG TABLETS PO SCH (21:41)
[2022-09-15] MEDS: THIAMINE HCL 100 MG TABLET (FP) PO SCH (21:41)
[2022-09-15] MEDS: ACETAMINOPHEN 325 MG TABLET (FP) PO PRN (21:41)
[2022-09-16] MEDS: methaDONE 40 MG, methaDONE 30 MG PO SCH (06:12)
[2022-09-16] MEDS: amLODIPine BESYLATE 10 MG TABLET (FP) PO SCH (07:16)
[2022-09-16] MEDS: metFORMIN HCL 500 MG TABLET (FP) PO SCH ×2 (07:17→17:26)
[2022-09-16] MEDS: PRENATAL VITAMINS W/ FOLIC ACID TABLET (FP) PO SCH (09:56)
[2022-09-16] MEDS: LISINOPRIL 20 MG TABLET PO SCH (09:57)
[2022-09-16] MEDS ORDERED: amLODIPine BESYLATE 10 MG TABLET (FP) PO SCH (10:00)
[2022-09-16] MEDS: THIAMINE HCL 100 MG TABLET (FP) PO SCH (21:09)
[2022-09-16] MEDS: MELATONIN 5 MG TABLETS PO SCH (21:09)
[2022-09-17] MEDS: metFORMIN HCL 500 MG TABLET (FP) PO SCH ×2 (06:35→17:20)
[2022-09-17] MEDS: methaDONE 40 MG, methaDONE 30 MG PO SCH (06:35)
[2022-09-17] MEDS: LISINOPRIL 20 MG TABLET PO SCH (10:05)
[2022-09-17] MEDS: amLODIPine BESYLATE 10 MG TABLET (FP) PO SCH (10:05)
[2022-09-17] MEDS: PRENATAL VITAMINS W/ FOLIC ACID TABLET (FP) PO SCH (10:05)
[2022-09-17] MEDS ORDERED: LACTULOSE 20 GM/30 ML UDC (FOR ORAL USE ONLY) PO PRN (14:48)
[2022-09-17] MEDS: ACETAMINOPHEN 325 MG TABLET (FP) PO PRN (15:03)
[2022-09-17] MEDS: LACTULOSE 20 GM/30 ML UDC (FOR ORAL USE ONLY) PO SCH (21:29)
[2022-09-17] MEDS: THIAMINE HCL 100 MG TABLET (FP) PO SCH (21:29)
[2022-09-17] MEDS: MELATONIN 5 MG TABLETS PO SCH (21:29)
[2022-09-18] MEDS: LACTULOSE 20 GM/30 ML UDC (FOR ORAL USE ONLY) PO SCH ×3 (06:04→21:34)
[2022-09-18] MEDS: metFORMIN HCL 500 MG TABLET (FP) PO SCH ×2 (06:04→16:38)
[2022-09-18] MEDS: methaDONE 40 MG, methaDONE 30 MG PO SCH (06:05)
[2022-09-18] MEDS: amLODIPine BESYLATE 10 MG TABLET (FP) PO SCH (10:37)
[2022-09-18] MEDS: LISINOPRIL 20 MG TABLET PO SCH (10:37)
[2022-09-18] MEDS: PRENATAL VITAMINS W/ FOLIC ACID TABLET (FP) PO SCH (10:37)
[2022-09-18] MEDS ORDERED: metFORMIN HCL 500 MG TABLET (FP) PO ONE (17:45)
[2022-09-18] MEDS: MELATONIN 5 MG TABLETS PO SCH (21:34)
[2022-09-18] MEDS: THIAMINE HCL 100 MG TABLET (FP) PO SCH (21:34)
[2022-09-19] MEDS: methaDONE 40 MG, methaDONE 30 MG PO SCH (06:23)
[2022-09-19] MEDS: metFORMIN HCL 500 MG TABLET (FP) PO SCH ×2 (06:24→16:44)
[2022-09-19] MEDS: LACTULOSE 20 GM/30 ML UDC (FOR ORAL USE ONLY) PO SCH ×3 (06:24→21:29)
[2022-09-19] MEDS ORDERED: IBUPROFEN 400 MG TABLET (FP) PO PRN (10:09)
[2022-09-19] MEDS: PRENATAL VITAMINS W/ FOLIC ACID TABLET (FP) PO SCH (10:11)
[2022-09-19] MEDS: amLODIPine BESYLATE 10 MG TABLET (FP) PO SCH (10:12)
[2022-09-19] MEDS: LISINOPRIL 20 MG TABLET PO SCH (10:12)
[2022-09-19] MEDS: THIAMINE HCL 100 MG TABLET (FP) PO SCH (21:28)
[2022-09-19] MEDS: MELATONIN 5 MG TABLETS PO SCH (21:28)
[2022-09-20] MEDS: methaDONE 40 MG, methaDONE 30 MG PO SCH (05:46)
[2022-09-20] MEDS: LACTULOSE 20 GM/30 ML UDC (FOR ORAL USE ONLY) PO SCH ×3 (05:46→21:25)
[2022-09-20] MEDS: metFORMIN HCL 500 MG TABLET (FP) PO SCH ×2 (06:01→16:38)
[2022-09-20] MEDS: amLODIPine BESYLATE 10 MG TABLET (FP) PO SCH (09:44)
[2022-09-20] MEDS: LISINOPRIL 20 MG TABLET PO SCH (09:44)
[2022-09-20] MEDS: PRENATAL VITAMINS W/ FOLIC ACID TABLET (FP) PO SCH (09:44)
[2022-09-20] MEDS: THIAMINE HCL 100 MG TABLET (FP) PO SCH (21:25)
[2022-09-20] MEDS: MELATONIN 5 MG TABLETS PO SCH (21:25)
[2022-09-21] MEDS: methaDONE 40 MG, methaDONE 30 MG PO SCH (06:20)
[2022-09-21] MEDS: metFORMIN HCL 500 MG TABLET (FP) PO SCH ×2 (06:21→17:49)
[2022-09-21] MEDS: LACTULOSE 20 GM/30 ML UDC (FOR ORAL USE ONLY) PO SCH ×3 (06:22→21:39)
[2022-09-21] MEDS: amLODIPine BESYLATE 10 MG TABLET (FP) PO SCH (09:42)
[2022-09-21] MEDS: PRENATAL VITAMINS W/ FOLIC ACID TABLET (FP) PO SCH (09:42)
[2022-09-21] MEDS: LISINOPRIL 20 MG TABLET PO SCH (09:42)
[2022-09-21] MEDS: MELATONIN 5 MG TABLETS PO SCH (21:39)
[2022-09-21] MEDS: THIAMINE HCL 100 MG TABLET (FP) PO SCH (21:39)
[2022-09-22] MEDS: LACTULOSE 20 GM/30 ML UDC (FOR ORAL USE ONLY) PO SCH ×3 (06:05→22:02)
[2022-09-22] MEDS: methaDONE 40 MG, methaDONE 30 MG PO SCH (06:06)
[2022-09-22] MEDS: metFORMIN HCL 500 MG TABLET (FP) PO SCH ×2 (06:06→17:24)
[2022-09-22] MEDS: amLODIPine BESYLATE 10 MG TABLET (FP) PO SCH (10:22)
[2022-09-22] MEDS: LISINOPRIL 20 MG TABLET PO SCH (10:22)
[2022-09-22] MEDS: PRENATAL VITAMINS W/ FOLIC ACID TABLET (FP) PO SCH (10:22)
[2022-09-22] MEDS: THIAMINE HCL 100 MG TABLET (FP) PO SCH (22:02)
[2022-09-22] MEDS: MELATONIN 5 MG TABLETS PO SCH (22:02)
[2022-09-23] MEDS: LACTULOSE 20 GM/30 ML UDC (FOR ORAL USE ONLY) PO SCH ×3 (06:23→21:24)
[2022-09-23] MEDS: methaDONE 40 MG, methaDONE 30 MG PO SCH (06:24)
[2022-09-23] MEDS: metFORMIN HCL 500 MG TABLET (FP) PO SCH ×2 (06:24→17:11)
[2022-09-23] MEDS: PRENATAL VITAMINS W/ FOLIC ACID TABLET (FP) PO SCH (09:15)
[2022-09-23] MEDS: amLODIPine BESYLATE 10 MG TABLET (FP) PO SCH (09:15)
[2022-09-23] MEDS: LISINOPRIL 10 MG TABLET PO SCH (09:15)
[2022-09-23] MEDS: APIXABAN 5 MG TABLET PO SCH ×2 (09:15→21:24)
[2022-09-23] MEDS: MELATONIN 5 MG TABLETS PO SCH (21:24)
[2022-09-23] MEDS: THIAMINE HCL 100 MG TABLET (FP) PO SCH (21:24)
[2022-09-24] MEDS: LACTULOSE 20 GM/30 ML UDC (FOR ORAL USE ONLY) PO SCH ×3 (05:41→21:30)
[2022-09-24] MEDS: methaDONE 40 MG, methaDONE 30 MG PO SCH (05:41)
[2022-09-24] MEDS: metFORMIN HCL 500 MG TABLET (FP) PO SCH ×2 (06:04→16:20)
[2022-09-24] MEDS: APIXABAN 5 MG TABLET PO SCH ×2 (09:42→21:30)
[2022-09-24] MEDS: PRENATAL VITAMINS W/ FOLIC ACID TABLET (FP) PO SCH (09:42)
[2022-09-24] MEDS: amLODIPine BESYLATE 10 MG TABLET (FP) PO SCH (09:42)
[2022-09-24] MEDS: LISINOPRIL 10 MG TABLET PO SCH (09:42)
[2022-09-24] MEDS: THIAMINE HCL 100 MG TABLET (FP) PO SCH (21:30)
[2022-09-24] MEDS: MELATONIN 5 MG TABLETS PO SCH (21:30)
[2022-09-25] MEDS: methaDONE 40 MG, methaDONE 30 MG PO SCH (05:43)
[2022-09-25] MEDS: LACTULOSE 20 GM/30 ML UDC (FOR ORAL USE ONLY) PO SCH ×3 (05:57→21:57)
[2022-09-25] MEDS: metFORMIN HCL 500 MG TABLET (FP) PO SCH ×2 (06:00→17:10)
[2022-09-25] MEDS: APIXABAN 5 MG TABLET PO SCH ×2 (10:16→21:57)
[2022-09-25] MEDS: LISINOPRIL 10 MG TABLET PO SCH (10:16)
[2022-09-25] MEDS: PRENATAL VITAMINS W/ FOLIC ACID TABLET (FP) PO SCH (10:16)
[2022-09-25] MEDS: amLODIPine BESYLATE 10 MG TABLET (FP) PO SCH (10:16)
[2022-09-25] MEDS: MELATONIN 5 MG TABLETS PO SCH (21:57)
[2022-09-25] MEDS: THIAMINE HCL 100 MG TABLET (FP) PO SCH (21:57)
[2022-09-25] MEDS: ACETAMINOPHEN 325 MG TABLET (FP) PO PRN (21:58)
[2022-09-26] MEDS: LACTULOSE 20 GM/30 ML UDC (FOR ORAL USE ONLY) PO SCH ×3 (06:01→21:44)
[2022-09-26] MEDS: methaDONE 40 MG, methaDONE 30 MG PO SCH (06:01)
[2022-09-26] MEDS: metFORMIN HCL 500 MG TABLET (FP) PO SCH ×2 (06:01→17:05)
[2022-09-26] MEDS: amLODIPine BESYLATE 10 MG TABLET (FP) PO SCH (09:54)
[2022-09-26] MEDS: APIXABAN 5 MG TABLET PO SCH ×2 (09:54→21:44)
[2022-09-26] MEDS: PRENATAL VITAMINS W/ FOLIC ACID TABLET (FP) PO SCH (09:54)
[2022-09-26] MEDS: LISINOPRIL 10 MG TABLET PO SCH (09:54)
[2022-09-26] MEDS: ACETAMINOPHEN 325 MG TABLET (FP) PO PRN ×2 (17:05→21:46)
[2022-09-26] MEDS: MELATONIN 5 MG TABLETS PO SCH (21:44)
[2022-09-26] MEDS: THIAMINE HCL 100 MG TABLET (FP) PO SCH (21:44)
[2022-09-27] MEDS: LACTULOSE 20 GM/30 ML UDC (FOR ORAL USE ONLY) PO SCH (06:00)
[2022-09-27] MEDS: metFORMIN HCL 500 MG TABLET (FP) PO SCH (06:01)
[2022-09-27] MEDS: methaDONE 40 MG, methaDONE 30 MG PO SCH (06:01)
[2022-09-27] MEDS: ACETAMINOPHEN 325 MG TABLET (FP) PO PRN (06:04)
[2022-09-27 07:02] VITALS: RESP 18; TEMP 96.9
[2022-09-27] MEDS: PRENATAL VITAMINS W/ FOLIC ACID TABLET (FP) PO SCH (10:16)
[2022-09-27] MEDS: APIXABAN 5 MG TABLET PO SCH (10:16)
[2022-09-27] MEDS: amLODIPine BESYLATE 10 MG TABLET (FP) PO SCH (10:16)
[2022-09-27] MEDS: LISINOPRIL 10 MG TABLET PO SCH (10:17)
[2022-09-27 11:12] VITALS: BP 133/59; PULSE 88
== END 2022-09-27 10:21 | disposition home or self-care (01) | DRG 772 ==
LOC: YASAS 16:47 → Y3W 23:18
PROVIDERS: ADMIT Allergy & Immunology; ATTEND Surgery
PROC: HZ42ZZZ Group Counseling for Substance Abuse Treatment, Cognitive-Behavioral (ICD-10-PCS; principal; 2022-09-13)
DX: F10.20 Alcohol dependence, uncomplicated (principal); F20.9 Schizophrenia, unspecified; I10 Essential (primary) hypertension; I48.91 Unspecified atrial fibrillation; E11.65 Type 2 diabetes mellitus with hyperglycemia; Z79.84 Long term (current) use of oral hypoglycemic drugs; M17.11 Unilateral primary osteoarthritis, right knee; E66.01 Morbid (severe) obesity due to excess calories; Z68.42 Body mass index [BMI] 45.0-49.9, adult; Z87.891 Personal history of nicotine dependence; Z79.01 Long term (current) use of anticoagulants; Z86.718 Personal history of other venous thrombosis and embolism; Z99.89 Dependence on other enabling machines and devices
CPT/HCPCS: 81003; 82140; 82962; 87086; C9803-CS; U0003; U0005

== ENCOUNTER 2023-08-11 22:51 | Inpatient (IN) | payer OTHER ==
[2023-08-12 00:26] VITALS: BMI 45.1
[2023-08-12] MEDS ORDERED: NALOXONE HCL (KLOXXADO) 8 MG SPRAY NS PRN (01:32)
[2023-08-12] MEDS ORDERED: ACETAMINOPHEN 325 MG TABLET (FP) PO PRN (01:32)
[2023-08-12] MEDS ORDERED: POLYETHYLENE GLYCOL (HEALTHYLAX) 3350 17 GM PACKET PO PRN (01:32)
[2023-08-12] MEDS ORDERED: BENZOCAINE/MENTHOL (CHLORASEPTIC ) LOZENGE MM PRN (01:32)
[2023-08-12] MEDS ORDERED: IBUPROFEN 400 MG TABLET (FP) PO PRN (01:32)
[2023-08-12] MEDS ORDERED: IBUPROFEN 600 MG TABLET (FP) PO PRN (01:32)
[2023-08-12] MEDS ORDERED: MAGNESIUM HYDROX 2400MG/30ML ORAL SUSPENSION 30 ML CUP PO PRN (01:32)
[2023-08-12] MEDS ORDERED: MAG HYDROX/AL HYDROX/SIMETH 30 ML UNIT-DOSE CUP PO PRN (01:32)
[2023-08-12] MEDS ORDERED: ONDANSETRON *ODT* 4 MG TABLET SL PRN (01:32)
[2023-08-12] MEDS ORDERED: NALOXONE HCL 0.4 MG/ML VIAL IM PRN (01:32)
[2023-08-12] MEDS ORDERED: BENZONATATE 200 MG CAPSULE PO PRN (01:32)
[2023-08-12] MEDS ORDERED: guaiFENesin 600 MG TABLET.ER (FP) PO PRN (01:32)
[2023-08-12] MEDS ORDERED: LOPERAMIDE HCL 2 MG CAPSULE PO PRN (01:32)
[2023-08-12] MEDS ORDERED: BISMUTH SUBSALICYLATE 524 MG/30 ML PO PRN (01:32)
[2023-08-12] MEDS: metFORMIN HCL 500 MG TABLET (FP) PO SCH ×2 (07:59→17:00)
[2023-08-12] MEDS ORDERED: methaDONE HCL 10 MG TABLET PO ONE (09:30)
[2023-08-12] MEDS ORDERED: methaDONE HCL 10 MG TABLET (FOR DETOX USE ONLY) ONE (09:37)
[2023-08-12] MEDS ORDERED: PRENATAL VITAMINS W/ FOLIC ACID TABLET (FP) PO ONE (09:37)
[2023-08-12] MEDS ORDERED: amLODIPine BESYLATE 5 MG TABLET (FP) ONE (09:37)
[2023-08-12] MEDS: PRENATAL VITAMINS W/ FOLIC ACID TABLET (FP) PO SCH (09:39)
[2023-08-12] MEDS: amLODIPine BESYLATE 10 MG TABLET (FP) PO SCH (09:39)
[2023-08-12] MEDS ORDERED: LISINOPRIL 10 MG TABLET ONE (09:46)
[2023-08-12] MEDS: LISINOPRIL 10 MG TABLET PO SCH (09:51)
[2023-08-12] MEDS: ATORVASTATIN CA 40 MG TABLET (FP) PO SCH (10:55)
[2023-08-12] MEDS: APIXABAN 5 MG TABLET PO SCH ×2 (10:55→22:20)
[2023-08-12] MEDS: DOCUSATE SODIUM 100 MG CAPSULE (FP) PO SCH (10:59)
[2023-08-12 12:31] LABS: ALBUMIN 3.2 g/dl (3.4-5.0); BLOOD UREA NITROGEN 70.4 mg/dL (7-18); HEMATOCRIT 30.2 % (35.4-49); HEMOGLOBIN 9.5 GM/dL (11.7-16.9); MCH 29.4 pg (25.7-33.7); MCHC 31.5 g/dl (32.0-35.9); MEAN CELL VOLUME 93.6 fl (80-96); MEAN PLT VOLUME 7.1 fl (7.5-11.1); PLATELET COUNT 316 10^3/uL (134-434); RBC 3.23 M/mm3 (4.00-5.60); RDW 15.4 % (11.9-15.9)
[2023-08-12 12:34] LABS: CREATININE 3.8 mg/dL (0.55-1.3)
[2023-08-12 12:36] LABS: BILIRUBIN,TOTAL 0.5 mg/dL (0.2-1); TOT PROT 7.7 g/dl (6.4-8.2)
[2023-08-12 12:39] LABS: POTASSIUM 4.9 mmol/L (3.5-5.1)
[2023-08-12] MEDS: THIAMINE HCL 100 MG TABLET (FP) PO SCH (22:20)
[2023-08-12] MEDS: MELATONIN 5 MG TABLETS PO SCH (22:20)
[2023-08-13] MEDS: metFORMIN HCL 500 MG TABLET (FP) PO SCH ×2 (06:21→16:43)
[2023-08-13] MEDS ORDERED: methaDONE HCL 10 MG TABLET PO SCH (10:00)
[2023-08-13] MEDS: amLODIPine BESYLATE 10 MG TABLET (FP) PO SCH (10:22)
[2023-08-13] MEDS: PRENATAL VITAMINS W/ FOLIC ACID TABLET (FP) PO SCH (10:22)
[2023-08-13] MEDS: DOCUSATE SODIUM 100 MG CAPSULE (FP) PO SCH (10:22)
[2023-08-13] MEDS: LISINOPRIL 10 MG TABLET PO SCH (10:22)
[2023-08-13] MEDS: APIXABAN 5 MG TABLET PO SCH ×2 (10:23→22:19)
[2023-08-13] MEDS: ATORVASTATIN CA 40 MG TABLET (FP) PO SCH (10:23)
[2023-08-13] MEDS: methaDONE 40 MG, methaDONE 30 MG PO SCH (10:26)
[2023-08-13] MEDS: diazePAM 5 MG TABLET PO SCH ×2 (17:57→22:19)
[2023-08-13] MEDS: THIAMINE HCL 100 MG TABLET (FP) PO SCH (22:19)
[2023-08-13] MEDS: MELATONIN 5 MG TABLETS PO SCH (22:19)
[2023-08-14] MEDS: methaDONE 40 MG, methaDONE 30 MG PO SCH (05:29)
[2023-08-14] MEDS: diazePAM 5 MG TABLET PO SCH ×3 (05:30→22:22)
[2023-08-14] MEDS: metFORMIN HCL 500 MG TABLET (FP) PO SCH ×2 (06:34→16:37)
[2023-08-14] MEDS: ATORVASTATIN CA 40 MG TABLET (FP) PO SCH (10:27)
[2023-08-14] MEDS: PRENATAL VITAMINS W/ FOLIC ACID TABLET (FP) PO SCH (10:27)
[2023-08-14] MEDS: APIXABAN 5 MG TABLET PO SCH ×2 (10:27→22:22)
[2023-08-14] MEDS: DOCUSATE SODIUM 100 MG CAPSULE (FP) PO SCH (10:27)
[2023-08-14] MEDS: amLODIPine BESYLATE 10 MG TABLET (FP) PO SCH (10:28)
[2023-08-14] MEDS: LISINOPRIL 10 MG TABLET PO SCH (10:28)
[2023-08-14] MEDS: MELATONIN 5 MG TABLETS PO SCH (22:22)
[2023-08-14] MEDS: THIAMINE HCL 100 MG TABLET (FP) PO SCH (22:22)
[2023-08-15] MEDS: methaDONE 40 MG, methaDONE 30 MG PO SCH (05:51)
[2023-08-15] MEDS: diazePAM 5 MG TABLET PO SCH ×2 (05:51→17:37)
[2023-08-15] MEDS: metFORMIN HCL 500 MG TABLET (FP) PO SCH ×2 (06:05→16:41)
[2023-08-15] MEDS ORDERED: ATORVASTATIN CA 20 MG TABLET (FP) ONE (09:16)
[2023-08-15] MEDS: PRENATAL VITAMINS W/ FOLIC ACID TABLET (FP) PO SCH (10:36)
[2023-08-15] MEDS: DOCUSATE SODIUM 100 MG CAPSULE (FP) PO SCH (10:36)
[2023-08-15] MEDS: LISINOPRIL 10 MG TABLET PO SCH (10:36)
[2023-08-15] MEDS: APIXABAN 5 MG TABLET PO SCH ×2 (10:36→22:21)
[2023-08-15] MEDS: amLODIPine BESYLATE 10 MG TABLET (FP) PO SCH (10:37)
[2023-08-15] MEDS: diazePAM 5 MG TABLET PO PRN ×2 (10:39→22:23)
[2023-08-15] MEDS: ATORVASTATIN CA 40 MG TABLET (FP) PO SCH (10:41)
[2023-08-15] MEDS: THIAMINE HCL 100 MG TABLET (FP) PO SCH (22:21)
[2023-08-15] MEDS: MELATONIN 5 MG TABLETS PO SCH (22:21)
[2023-08-16] MEDS: methaDONE 40 MG, methaDONE 30 MG PO SCH (05:35)
[2023-08-16] MEDS ORDERED: diazePAM 5 MG TABLET PO ONE (06:00)
[2023-08-16] MEDS: metFORMIN HCL 500 MG TABLET (FP) PO SCH (06:09)
[2023-08-16] MEDS: amLODIPine BESYLATE 10 MG TABLET (FP) PO SCH (09:41)
[2023-08-16] MEDS: DOCUSATE SODIUM 100 MG CAPSULE (FP) PO SCH (09:41)
[2023-08-16] MEDS: LISINOPRIL 10 MG TABLET PO SCH (09:41)
[2023-08-16] MEDS: APIXABAN 5 MG TABLET PO SCH (09:41)
[2023-08-16] MEDS: ATORVASTATIN CA 40 MG TABLET (FP) PO SCH (09:41)
[2023-08-16] MEDS: PRENATAL VITAMINS W/ FOLIC ACID TABLET (FP) PO SCH (09:42)
[2023-08-16 09:48] VITALS: BP 120/64; PULSE 74; RESP 16; TEMP 97.3
== END 2023-08-16 11:43 | disposition other institution (70) | DRG 773 ==
LOC: YASAS 22:51 → Y6N 08-12 08:22
PROVIDERS: ADMIT Allergy & Immunology; ATTEND Surgery
PROC: HZ2ZZZZ Detoxification Services for Substance Abuse Treatment (ICD-10-PCS; principal; 2023-08-12)
DX: F10.230 Alcohol dependence with withdrawal, uncomplicated (principal); F11.20 Opioid dependence, uncomplicated; F19.282 Other psychoactive substance dependence with psychoactive substance-induced sleep disorder; F19.280 Other psychoactive substance dependence with psychoactive substance-induced anxiety disorder; G47.33 Obstructive sleep apnea (adult) (pediatric); I10 Essential (primary) hypertension; N17.9 Acute kidney failure, unspecified; E78.2 Mixed hyperlipidemia; E11.9 Type 2 diabetes mellitus without complications; Z79.84 Long term (current) use of oral hypoglycemic drugs; E66.01 Morbid (severe) obesity due to excess calories; Z68.42 Body mass index [BMI] 45.0-49.9, adult; Z87.891 Personal history of nicotine dependence; Z86.718 Personal history of other venous thrombosis and embolism; Z79.01 Long term (current) use of anticoagulants; Z99.89 Dependence on other enabling machines and devices
CPT/HCPCS: 36415; 80053; 80307; 82962; 85027; 86780; 87635; 87811; 93005; 93010

== ENCOUNTER 2023-08-14 15:09 | Emergency (ER) | payer OTHER ==
[2023-08-14 15:23] VITALS: BP 143/84; PULSE 74; RESP 18; TEMP 98.9; BMI 45.1
[2023-08-14] MEDS ORDERED: SODIUM CHLORIDE 0.9% 500 ML INFUS.BAG IV ONE (15:56)
[2023-08-14 16:23] LABS: BASO % 0.8 % (0-2.0); EOS % 4.6 % (0-4.5); HEMATOCRIT 29.2 % (35.4-49); HEMOGLOBIN 9.5 GM/dL (11.7-16.9); LYMPH % 13.9 % (8-40); MCH 29.6 pg (25.7-33.7); MCHC 32.3 g/dl (32.0-35.9); MEAN CELL VOLUME 91.7 fl (80-96); MEAN PLT VOLUME 6.8 fl (7.5-11.1); MONO % 8.4 % (3.8-10.2); NEUT % 72.3 % (42.8-82.8); PLATELET COUNT 312 10^3/uL (134-434); RBC 3.19 M/mm3 (4.00-5.60); RDW 15.6 % (11.9-15.9); WHITE BLOOD COUNT 6.6 K/mm3 (4.0-10.0)
[2023-08-14 16:31] LABS: INR 1.44 (0.83-1.09); PROTHROMBIN TIME (PATIENT) 16.6 SEC (9.7-13.0)
[2023-08-14 16:34] LABS: ACTIVATED PTT 33.3 SECONDS (25.2-36.5)
[2023-08-14 16:54] LABS: ALBUMIN 2.9 g/dl (3.4-5.0); BLOOD UREA NITROGEN 46.9 mg/dL (7-18); CALCIUM 8.9 mg/dL (8.5-10.1); MAGNESIUM 1.2 mg/dL (1.8-2.4)
[2023-08-14 16:57] LABS: CREATININE 1.8 mg/dL (0.55-1.3)
[2023-08-14 16:59] LABS: BILIRUBIN,TOTAL 0.3 mg/dL (0.2-1); TOT PROT 7.1 g/dl (6.4-8.2)
[2023-08-14 17:05] LABS: N-TERMINAL BNP 438.9 pg/ml (5-125)
[2023-08-14] MEDS ORDERED: MAGNESIUM SULF 50% (8.12 MEQ/2 ML-1 GM VIAL) IVPB ONE (17:36)
[2023-08-14 18:02] LABS: PH,URINE 6.5 (5.0-8.0); URINE APPEARANCE CLEAR; URINE BILIRUBIN NEGATIVE (NEGATIVE); URINE COLOR YELLOW; URINE GLUCOSE (UA) 2+ (NEGATIVE); URINE KETONE NEGATIVE (NEGATIVE); URINE LEUK ESTERASE NEGATIVE (NEGATIVE); URINE NITRITE NEGATIVE (NEGATIVE); URINE PROTEIN NEGATIVE (NEGATIVE)
== END 2023-08-14 19:26 | disposition home or self-care (01) ==
LOC: JER 15:09 → JERBED 15:57 → UNDOADMIN 15:57 → JER 19:26
PROC: 3E033GC Introduction of Other Therapeutic Substance into Peripheral Vein, Percutaneous Approach (ICD-10-PCS; principal; 2023-08-14)
DX: N17.9 Acute kidney failure, unspecified (principal); R60.0 Localized edema; F10.20 Alcohol dependence, uncomplicated; S81.801S Unspecified open wound, right lower leg, sequela; S81.802S Unspecified open wound, left lower leg, sequela; X58.XXXS Exposure to other specified factors, sequela
CPT/HCPCS: 36415; 80053; 81003; 83735; 83880; 85025; 85610; 85730; 87086; 93005; 93010; 99284-25

== ENCOUNTER 2023-08-16 12:13 | Inpatient (IN) | payer OTHER ==
[2023-08-16] MEDS ORDERED: MAG HYDROX/AL HYDROX/SIMETH 30 ML UNIT-DOSE CUP PO PRN (13:10)
[2023-08-16] MEDS ORDERED: IBUPROFEN 600 MG TABLET (FP) PO PRN (13:10)
[2023-08-16] MEDS ORDERED: MAGNESIUM HYDROX 2400MG/30ML ORAL SUSPENSION 30 ML CUP PO PRN (13:10)
[2023-08-16] MEDS ORDERED: COLLOIDAL OATMEAL 1 BAR EACH TP PRN (13:10)
[2023-08-16] MEDS ORDERED: LOPERAMIDE HCL 2 MG CAPSULE PO PRN (13:10)
[2023-08-16] MEDS ORDERED: BENZONATATE 200 MG CAPSULE PO PRN (13:10)
[2023-08-16] MEDS ORDERED: NALOXONE HCL 0.4 MG/ML VIAL IVPUSH PRN (13:10)
[2023-08-16] MEDS ORDERED: IBUPROFEN 400 MG TABLET (FP) PO PRN (13:10)
[2023-08-16] MEDS ORDERED: NALOXONE HCL (KLOXXADO) 8 MG SPRAY NS PRN (13:10)
[2023-08-16] MEDS ORDERED: POLYETHYLENE GLYCOL (HEALTHYLAX) 3350 17 GM PACKET PO PRN (13:10)
[2023-08-16] MEDS ORDERED: BENZOCAINE/MENTHOL (CHLORASEPTIC ) LOZENGE MM PRN (13:10)
[2023-08-16] MEDS ORDERED: guaiFENesin 600 MG TABLET.ER (FP) PO PRN (13:10)
[2023-08-16] MEDS ORDERED: ARIPiprazole 10 MG TABLET PO PRN (13:11)
[2023-08-16] MEDS: PRENATAL VITAMINS W/ FOLIC ACID TABLET (FP) PO SCH (14:09)
[2023-08-16] MEDS: metFORMIN HCL 500 MG TABLET (FP) PO SCH (17:04)
[2023-08-16] MEDS: MELATONIN 5 MG TABLETS PO SCH (21:50)
[2023-08-16] MEDS: THIAMINE HCL 100 MG TABLET (FP) PO SCH (21:50)
[2023-08-16] MEDS: APIXABAN 5 MG TABLET PO SCH (21:50)
[2023-08-16] MEDS: hydrOXYzine PAMOATE 25 MG CAPSULE (FP) PO PRN (21:54)
[2023-08-17] MEDS ORDERED: methaDONE HCL 10 MG TABLET PO SCH (06:00)
[2023-08-17] MEDS: methaDONE 40 MG, methaDONE 30 MG PO SCH (06:39)
[2023-08-17] MEDS: metFORMIN HCL 500 MG TABLET (FP) PO SCH ×2 (07:49→17:24)
[2023-08-17] MEDS: HYDROCHLOROTHIAZIDE 25 MG TABLET (FP) PO SCH (09:50)
[2023-08-17] MEDS: amLODIPine BESYLATE 10 MG TABLET (FP) PO SCH (09:50)
[2023-08-17] MEDS: APIXABAN 5 MG TABLET PO SCH ×2 (09:50→21:43)
[2023-08-17] MEDS: DOCUSATE SODIUM 100 MG CAPSULE (FP) PO SCH (09:50)
[2023-08-17] MEDS: ATORVASTATIN CA 40 MG TABLET (FP) PO SCH (09:51)
[2023-08-17] MEDS: PRENATAL VITAMINS W/ FOLIC ACID TABLET (FP) PO SCH (09:51)
[2023-08-17] MEDS: LISINOPRIL 10 MG TABLET PO SCH (11:10)
[2023-08-17] MEDS: ACETAMINOPHEN 325 MG TABLET (FP) PO PRN (20:32)
[2023-08-17] MEDS: THIAMINE HCL 100 MG TABLET (FP) PO SCH (21:43)
[2023-08-17] MEDS: MELATONIN 5 MG TABLETS PO SCH (21:43)
[2023-08-17] MEDS: hydrOXYzine PAMOATE 25 MG CAPSULE (FP) PO PRN (21:44)
[2023-08-18] MEDS: ACETAMINOPHEN 325 MG TABLET (FP) PO PRN ×3 (06:31→21:43)
[2023-08-18] MEDS: metFORMIN HCL 500 MG TABLET (FP) PO SCH ×2 (06:32→16:51)
[2023-08-18] MEDS: methaDONE 40 MG, methaDONE 30 MG PO SCH (06:32)
[2023-08-18] MEDS: PRENATAL VITAMINS W/ FOLIC ACID TABLET (FP) PO SCH (09:56)
[2023-08-18] MEDS: APIXABAN 5 MG TABLET PO SCH ×2 (09:56→21:41)
[2023-08-18] MEDS: ATORVASTATIN CA 40 MG TABLET (FP) PO SCH (09:57)
[2023-08-18] MEDS: DOCUSATE SODIUM 100 MG CAPSULE (FP) PO SCH (09:57)
[2023-08-18] MEDS: HYDROCHLOROTHIAZIDE 25 MG TABLET (FP) PO SCH (10:52)
[2023-08-18] MEDS: LISINOPRIL 10 MG TABLET PO SCH (10:52)
[2023-08-18] MEDS: amLODIPine BESYLATE 10 MG TABLET (FP) PO SCH (10:52)
[2023-08-18] MEDS: THIAMINE HCL 100 MG TABLET (FP) PO SCH (21:41)
[2023-08-18] MEDS: hydrOXYzine PAMOATE 25 MG CAPSULE (FP) PO PRN (21:41)
[2023-08-18] MEDS: MELATONIN 5 MG TABLETS PO SCH (21:41)
[2023-08-19] MEDS: ACETAMINOPHEN 325 MG TABLET (FP) PO PRN ×4 (06:15→22:08)
[2023-08-19] MEDS: methaDONE 40 MG, methaDONE 30 MG PO SCH (06:16)
[2023-08-19] MEDS: metFORMIN HCL 500 MG TABLET (FP) PO SCH ×2 (06:17→16:57)
[2023-08-19] MEDS: APIXABAN 5 MG TABLET PO SCH ×2 (10:12→22:06)
[2023-08-19] MEDS: DOCUSATE SODIUM 100 MG CAPSULE (FP) PO SCH (10:12)
[2023-08-19] MEDS: ATORVASTATIN CA 40 MG TABLET (FP) PO SCH (10:12)
[2023-08-19] MEDS: PRENATAL VITAMINS W/ FOLIC ACID TABLET (FP) PO SCH (10:13)
[2023-08-19] MEDS: amLODIPine BESYLATE 10 MG TABLET (FP) PO SCH (10:16)
[2023-08-19] MEDS: LISINOPRIL 10 MG TABLET PO SCH (10:16)
[2023-08-19] MEDS: HYDROCHLOROTHIAZIDE 25 MG TABLET (FP) PO SCH (10:16)
[2023-08-19] MEDS: THIAMINE HCL 100 MG TABLET (FP) PO SCH (22:06)
[2023-08-19] MEDS: MELATONIN 5 MG TABLETS PO SCH (22:07)
[2023-08-20] MEDS: metFORMIN HCL 500 MG TABLET (FP) PO SCH ×2 (06:22→17:15)
[2023-08-20] MEDS: ACETAMINOPHEN 325 MG TABLET (FP) PO PRN ×3 (06:24→21:04)
[2023-08-20] MEDS: methaDONE 40 MG, methaDONE 30 MG PO SCH (06:26)
[2023-08-20] MEDS: DOCUSATE SODIUM 100 MG CAPSULE (FP) PO SCH (10:11)
[2023-08-20] MEDS: ATORVASTATIN CA 40 MG TABLET (FP) PO SCH (10:11)
[2023-08-20] MEDS: PRENATAL VITAMINS W/ FOLIC ACID TABLET (FP) PO SCH (10:11)
[2023-08-20] MEDS: APIXABAN 5 MG TABLET PO SCH ×2 (10:11→21:04)
[2023-08-20] MEDS: HYDROCHLOROTHIAZIDE 25 MG TABLET (FP) PO SCH (11:21)
[2023-08-20] MEDS: amLODIPine BESYLATE 10 MG TABLET (FP) PO SCH (11:21)
[2023-08-20] MEDS: LISINOPRIL 10 MG TABLET PO SCH (11:22)
[2023-08-20] MEDS: THIAMINE HCL 100 MG TABLET (FP) PO SCH (21:03)
[2023-08-20] MEDS: MELATONIN 5 MG TABLETS PO SCH (21:04)
[2023-08-20] MEDS: hydrOXYzine PAMOATE 25 MG CAPSULE (FP) PO PRN (21:54)
[2023-08-21] MEDS: methaDONE 40 MG, methaDONE 30 MG PO SCH (06:00)
[2023-08-21] MEDS: metFORMIN HCL 500 MG TABLET (FP) PO SCH ×2 (06:02→16:57)
[2023-08-21] MEDS: ACETAMINOPHEN 325 MG TABLET (FP) PO PRN ×4 (06:03→23:30)
[2023-08-21] MEDS: LISINOPRIL 10 MG TABLET PO SCH (10:00)
[2023-08-21] MEDS: amLODIPine BESYLATE 10 MG TABLET (FP) PO SCH (10:00)
[2023-08-21] MEDS: HYDROCHLOROTHIAZIDE 25 MG TABLET (FP) PO SCH (10:00)
[2023-08-21] MEDS: DOCUSATE SODIUM 100 MG CAPSULE (FP) PO SCH (10:00)
[2023-08-21] MEDS: PRENATAL VITAMINS W/ FOLIC ACID TABLET (FP) PO SCH (10:00)
[2023-08-21] MEDS: APIXABAN 5 MG TABLET PO SCH ×2 (10:00→21:54)
[2023-08-21] MEDS: ATORVASTATIN CA 40 MG TABLET (FP) PO SCH (10:00)
[2023-08-21] MEDS: THIAMINE HCL 100 MG TABLET (FP) PO SCH (21:54)
[2023-08-21] MEDS: MELATONIN 5 MG TABLETS PO SCH (21:54)
[2023-08-21] MEDS: hydrOXYzine PAMOATE 25 MG CAPSULE (FP) PO PRN (21:55)
[2023-08-22] MEDS: methaDONE 40 MG, methaDONE 30 MG PO SCH (06:03)
[2023-08-22] MEDS: metFORMIN HCL 500 MG TABLET (FP) PO SCH ×2 (06:03→16:50)
[2023-08-22] MEDS: ACETAMINOPHEN 325 MG TABLET (FP) PO PRN ×3 (07:45→21:45)
[2023-08-22] MEDS: PRENATAL VITAMINS W/ FOLIC ACID TABLET (FP) PO SCH (09:58)
[2023-08-22] MEDS: APIXABAN 5 MG TABLET PO SCH ×2 (09:59→21:42)
[2023-08-22] MEDS: ATORVASTATIN CA 40 MG TABLET (FP) PO SCH (09:59)
[2023-08-22] MEDS: DOCUSATE SODIUM 100 MG CAPSULE (FP) PO SCH (09:59)
[2023-08-22] MEDS: HYDROCHLOROTHIAZIDE 25 MG TABLET (FP) PO SCH (10:12)
[2023-08-22] MEDS: amLODIPine BESYLATE 10 MG TABLET (FP) PO SCH (10:12)
[2023-08-22] MEDS: LISINOPRIL 10 MG TABLET PO SCH (10:12)
[2023-08-22] MEDS: hydrOXYzine PAMOATE 25 MG CAPSULE (FP) PO PRN (21:41)
[2023-08-22] MEDS: MELATONIN 5 MG TABLETS PO SCH (21:42)
[2023-08-22] MEDS: THIAMINE HCL 100 MG TABLET (FP) PO SCH (21:42)
[2023-08-23] MEDS: metFORMIN HCL 500 MG TABLET (FP) PO SCH ×2 (06:36→16:36)
[2023-08-23] MEDS: methaDONE 40 MG, methaDONE 30 MG PO SCH (06:36)
[2023-08-23] MEDS: ACETAMINOPHEN 325 MG TABLET (FP) PO PRN ×2 (06:41→21:44)
[2023-08-23] MEDS: ATORVASTATIN CA 40 MG TABLET (FP) PO SCH (09:38)
[2023-08-23] MEDS: DOCUSATE SODIUM 100 MG CAPSULE (FP) PO SCH (09:41)
[2023-08-23] MEDS: APIXABAN 5 MG TABLET PO SCH ×2 (09:41→21:44)
[2023-08-23] MEDS: HYDROCHLOROTHIAZIDE 25 MG TABLET (FP) PO SCH (09:41)
[2023-08-23] MEDS: PRENATAL VITAMINS W/ FOLIC ACID TABLET (FP) PO SCH (09:41)
[2023-08-23] MEDS: LISINOPRIL 10 MG TABLET PO SCH (09:42)
[2023-08-23] MEDS: amLODIPine BESYLATE 5 MG TABLET (FP) PO SCH (09:42)
[2023-08-23] MEDS: THIAMINE HCL 100 MG TABLET (FP) PO SCH (21:44)
[2023-08-23] MEDS: MELATONIN 5 MG TABLETS PO SCH (21:44)
[2023-08-23] MEDS: hydrOXYzine PAMOATE 25 MG CAPSULE (FP) PO PRN (21:44)
[2023-08-24] MEDS: metFORMIN HCL 500 MG TABLET (FP) PO SCH ×2 (06:07→16:43)
[2023-08-24] MEDS: methaDONE 40 MG, methaDONE 30 MG PO SCH (06:08)
[2023-08-24] MEDS: ACETAMINOPHEN 325 MG TABLET (FP) PO PRN ×4 (06:13→21:35)
[2023-08-24] MEDS: PRENATAL VITAMINS W/ FOLIC ACID TABLET (FP) PO SCH (09:55)
[2023-08-24] MEDS: DOCUSATE SODIUM 100 MG CAPSULE (FP) PO SCH (09:55)
[2023-08-24] MEDS: APIXABAN 5 MG TABLET PO SCH ×2 (09:55→21:33)
[2023-08-24] MEDS: amLODIPine BESYLATE 5 MG TABLET (FP) PO SCH (09:55)
[2023-08-24] MEDS: ATORVASTATIN CA 40 MG TABLET (FP) PO SCH (09:55)
[2023-08-24] MEDS: LISINOPRIL 10 MG TABLET PO SCH (09:55)
[2023-08-24] MEDS: HYDROCHLOROTHIAZIDE 25 MG TABLET (FP) PO SCH (09:55)
[2023-08-24] MEDS: hydrOXYzine PAMOATE 25 MG CAPSULE (FP) PO PRN (21:34)
[2023-08-24] MEDS: THIAMINE HCL 100 MG TABLET (FP) PO SCH (21:34)
[2023-08-24] MEDS: MELATONIN 5 MG TABLETS PO SCH (21:34)
[2023-08-25] MEDS: methaDONE 40 MG, methaDONE 30 MG PO SCH (06:21)
[2023-08-25] MEDS: ACETAMINOPHEN 325 MG TABLET (FP) PO PRN ×4 (06:22→21:04)
[2023-08-25] MEDS: metFORMIN HCL 500 MG TABLET (FP) PO SCH ×2 (06:28→16:49)
[2023-08-25] MEDS: DOCUSATE SODIUM 100 MG CAPSULE (FP) PO SCH (10:01)
[2023-08-25] MEDS: amLODIPine BESYLATE 5 MG TABLET (FP) PO SCH (10:01)
[2023-08-25] MEDS: HYDROCHLOROTHIAZIDE 25 MG TABLET (FP) PO SCH (10:01)
[2023-08-25] MEDS: APIXABAN 5 MG TABLET PO SCH ×2 (10:01→21:04)
[2023-08-25] MEDS: ATORVASTATIN CA 40 MG TABLET (FP) PO SCH (10:01)
[2023-08-25] MEDS: LISINOPRIL 10 MG TABLET PO SCH (10:01)
[2023-08-25] MEDS: PRENATAL VITAMINS W/ FOLIC ACID TABLET (FP) PO SCH (10:02)
[2023-08-25] MEDS: MELATONIN 5 MG TABLETS PO SCH (21:04)
[2023-08-25] MEDS: THIAMINE HCL 100 MG TABLET (FP) PO SCH (21:04)
[2023-08-25] MEDS: hydrOXYzine PAMOATE 25 MG CAPSULE (FP) PO PRN (21:06)
[2023-08-26] MEDS: ACETAMINOPHEN 325 MG TABLET (FP) PO PRN ×3 (06:19→22:00)
[2023-08-26] MEDS: methaDONE 40 MG, methaDONE 30 MG PO SCH (06:19)
[2023-08-26] MEDS: metFORMIN HCL 500 MG TABLET (FP) PO SCH ×2 (06:20→16:45)
[2023-08-26 06:55] VITALS: RESP 18
[2023-08-26] MEDS: PRENATAL VITAMINS W/ FOLIC ACID TABLET (FP) PO SCH (09:54)
[2023-08-26] MEDS: APIXABAN 5 MG TABLET PO SCH ×2 (09:54→22:01)
[2023-08-26] MEDS: ATORVASTATIN CA 40 MG TABLET (FP) PO SCH (09:54)
[2023-08-26] MEDS: DOCUSATE SODIUM 100 MG CAPSULE (FP) PO SCH (09:54)
[2023-08-26] MEDS: HYDROCHLOROTHIAZIDE 25 MG TABLET (FP) PO SCH (13:17)
[2023-08-26] MEDS: amLODIPine BESYLATE 5 MG TABLET (FP) PO SCH (13:17)
[2023-08-26] MEDS: LISINOPRIL 10 MG TABLET PO SCH (13:17)
[2023-08-26] MEDS ORDERED: VITAMINS A AND D TOPICAL OINTMENT 60 GM TUBE TP SCH (18:00)
[2023-08-26] MEDS: hydrOXYzine PAMOATE 25 MG CAPSULE (FP) PO PRN (22:02)
[2023-08-26] MEDS: THIAMINE HCL 100 MG TABLET (FP) PO SCH (22:02)
[2023-08-26] MEDS: MELATONIN 5 MG TABLETS PO SCH (22:02)
[2023-08-26] MEDS: VITAMINS A AND D TOPICAL OINTMENT 60 GM TUBE TP PRN (22:36)
[2023-08-27] MEDS: ACETAMINOPHEN 325 MG TABLET (FP) PO PRN ×4 (06:36→21:39)
[2023-08-27] MEDS: methaDONE 40 MG, methaDONE 30 MG PO SCH (06:39)
[2023-08-27] MEDS: metFORMIN HCL 500 MG TABLET (FP) PO SCH ×2 (06:39→18:04)
[2023-08-27] MEDS: APIXABAN 5 MG TABLET PO SCH ×2 (09:56→21:39)
[2023-08-27] MEDS: PRENATAL VITAMINS W/ FOLIC ACID TABLET (FP) PO SCH (09:56)
[2023-08-27] MEDS: DOCUSATE SODIUM 100 MG CAPSULE (FP) PO SCH (09:56)
[2023-08-27] MEDS: ATORVASTATIN CA 40 MG TABLET (FP) PO SCH (09:57)
[2023-08-27] MEDS: HYDROCHLOROTHIAZIDE 25 MG TABLET (FP) PO SCH (12:09)
[2023-08-27] MEDS: LISINOPRIL 10 MG TABLET PO SCH (12:09)
[2023-08-27] MEDS: amLODIPine BESYLATE 5 MG TABLET (FP) PO SCH (12:09)
[2023-08-27] MEDS: MELATONIN 5 MG TABLETS PO SCH (21:39)
[2023-08-27] MEDS: hydrOXYzine PAMOATE 25 MG CAPSULE (FP) PO PRN (21:39)
[2023-08-27] MEDS: THIAMINE HCL 100 MG TABLET (FP) PO SCH (21:39)
[2023-08-28] MEDS: ACETAMINOPHEN 325 MG TABLET (FP) PO PRN ×3 (05:59→21:48)
[2023-08-28] MEDS: methaDONE 40 MG, methaDONE 30 MG PO SCH (06:00)
[2023-08-28] MEDS: metFORMIN HCL 500 MG TABLET (FP) PO SCH ×2 (06:00→16:39)
[2023-08-28] MEDS: DOCUSATE SODIUM 100 MG CAPSULE (FP) PO SCH (09:49)
[2023-08-28] MEDS: APIXABAN 5 MG TABLET PO SCH ×2 (09:49→21:50)
[2023-08-28] MEDS: PRENATAL VITAMINS W/ FOLIC ACID TABLET (FP) PO SCH (09:49)
[2023-08-28] MEDS: ATORVASTATIN CA 40 MG TABLET (FP) PO SCH (09:49)
[2023-08-28] MEDS: amLODIPine BESYLATE 5 MG TABLET (FP) PO SCH (09:49)
[2023-08-28] MEDS: LISINOPRIL 10 MG TABLET PO SCH (09:49)
[2023-08-28] MEDS: HYDROCHLOROTHIAZIDE 25 MG TABLET (FP) PO SCH (09:49)
[2023-08-28] MEDS: MELATONIN 5 MG TABLETS PO SCH (21:50)
[2023-08-28] MEDS: THIAMINE HCL 100 MG TABLET (FP) PO SCH (21:50)
[2023-08-28] MEDS: hydrOXYzine PAMOATE 25 MG CAPSULE (FP) PO PRN (21:50)
[2023-08-28] MEDS: VITAMINS A AND D TOPICAL OINTMENT 60 GM TUBE TP PRN (22:20)
[2023-08-29] MEDS: ACETAMINOPHEN 325 MG TABLET (FP) PO PRN ×4 (06:08→21:31)
[2023-08-29] MEDS: methaDONE 40 MG, methaDONE 30 MG PO SCH (06:09)
[2023-08-29] MEDS: metFORMIN HCL 500 MG TABLET (FP) PO SCH ×2 (06:10→16:27)
[2023-08-29] MEDS: DOCUSATE SODIUM 100 MG CAPSULE (FP) PO SCH (09:46)
[2023-08-29] MEDS: PRENATAL VITAMINS W/ FOLIC ACID TABLET (FP) PO SCH (09:46)
[2023-08-29] MEDS: APIXABAN 5 MG TABLET PO SCH ×2 (09:46→21:31)
[2023-08-29] MEDS: ATORVASTATIN CA 40 MG TABLET (FP) PO SCH (09:47)
[2023-08-29] MEDS: LISINOPRIL 10 MG TABLET PO SCH (09:50)
[2023-08-29] MEDS: amLODIPine BESYLATE 5 MG TABLET (FP) PO SCH (09:50)
[2023-08-29] MEDS: HYDROCHLOROTHIAZIDE 25 MG TABLET (FP) PO SCH (09:50)
[2023-08-29] MEDS ORDERED: METHOCARBAMOL 500 MG TABLET PO PRN (11:05)
[2023-08-29] MEDS: hydrOXYzine PAMOATE 25 MG CAPSULE (FP) PO PRN (21:31)
[2023-08-29] MEDS: MELATONIN 5 MG TABLETS PO SCH (21:31)
[2023-08-29] MEDS: THIAMINE HCL 100 MG TABLET (FP) PO SCH (21:31)
[2023-08-30] MEDS: methaDONE 40 MG, methaDONE 30 MG PO SCH (06:26)
[2023-08-30] MEDS: ACETAMINOPHEN 325 MG TABLET (FP) PO PRN ×3 (06:30→21:32)
[2023-08-30] MEDS: metFORMIN HCL 500 MG TABLET (FP) PO SCH ×2 (06:32→17:11)
[2023-08-30] MEDS: HYDROCHLOROTHIAZIDE 25 MG TABLET (FP) PO SCH (09:36)
[2023-08-30] MEDS: amLODIPine BESYLATE 5 MG TABLET (FP) PO SCH (09:36)
[2023-08-30] MEDS: APIXABAN 5 MG TABLET PO SCH ×2 (09:37→21:31)
[2023-08-30] MEDS: LISINOPRIL 10 MG TABLET PO SCH (09:37)
[2023-08-30] MEDS: DOCUSATE SODIUM 100 MG CAPSULE (FP) PO SCH (09:37)
[2023-08-30] MEDS: ATORVASTATIN CA 40 MG TABLET (FP) PO SCH (09:37)
[2023-08-30] MEDS: PRENATAL VITAMINS W/ FOLIC ACID TABLET (FP) PO SCH (09:37)
[2023-08-30] MEDS: MELATONIN 5 MG TABLETS PO SCH (21:31)
[2023-08-30] MEDS: THIAMINE HCL 100 MG TABLET (FP) PO SCH (21:31)
[2023-08-30] MEDS: hydrOXYzine PAMOATE 25 MG CAPSULE (FP) PO PRN (21:32)
[2023-08-31] MEDS: methaDONE 40 MG, methaDONE 30 MG PO SCH (06:05)
[2023-08-31] MEDS: metFORMIN HCL 500 MG TABLET (FP) PO SCH ×2 (06:05→16:30)
[2023-08-31] MEDS: ACETAMINOPHEN 325 MG TABLET (FP) PO PRN ×2 (06:07→21:29)
[2023-08-31] MEDS: PRENATAL VITAMINS W/ FOLIC ACID TABLET (FP) PO SCH (09:52)
[2023-08-31] MEDS: APIXABAN 5 MG TABLET PO SCH ×2 (09:52→21:29)
[2023-08-31] MEDS: ATORVASTATIN CA 40 MG TABLET (FP) PO SCH (09:52)
[2023-08-31] MEDS: DOCUSATE SODIUM 100 MG CAPSULE (FP) PO SCH (09:52)
[2023-08-31] MEDS: HYDROCHLOROTHIAZIDE 25 MG TABLET (FP) PO SCH (09:53)
[2023-08-31] MEDS: amLODIPine BESYLATE 5 MG TABLET (FP) PO SCH (09:53)
[2023-08-31] MEDS: LISINOPRIL 10 MG TABLET PO SCH (09:53)
[2023-08-31] MEDS: THIAMINE HCL 100 MG TABLET (FP) PO SCH (21:29)
[2023-08-31] MEDS: MELATONIN 5 MG TABLETS PO SCH (21:29)
[2023-08-31] MEDS: hydrOXYzine PAMOATE 25 MG CAPSULE (FP) PO PRN (21:30)
[2023-09-01] MEDS: metFORMIN HCL 500 MG TABLET (FP) PO SCH (06:03)
[2023-09-01] MEDS: ACETAMINOPHEN 325 MG TABLET (FP) PO PRN ×2 (06:03→09:51)
[2023-09-01] MEDS: methaDONE 40 MG, methaDONE 30 MG PO SCH (06:04)
[2023-09-01 06:44] VITALS: TEMP 97.8
[2023-09-01 09:05] VITALS: PULSE 85
[2023-09-01 09:06] VITALS: BP 127/57
[2023-09-01] MEDS: PRENATAL VITAMINS W/ FOLIC ACID TABLET (FP) PO SCH (09:48)
[2023-09-01] MEDS: APIXABAN 5 MG TABLET PO SCH (09:49)
[2023-09-01] MEDS: LISINOPRIL 10 MG TABLET PO SCH (09:49)
[2023-09-01] MEDS: HYDROCHLOROTHIAZIDE 25 MG TABLET (FP) PO SCH (09:49)
[2023-09-01] MEDS: DOCUSATE SODIUM 100 MG CAPSULE (FP) PO SCH (09:49)
[2023-09-01] MEDS: ATORVASTATIN CA 40 MG TABLET (FP) PO SCH (09:49)
[2023-09-01] MEDS: amLODIPine BESYLATE 5 MG TABLET (FP) PO SCH (09:49)
== END 2023-09-01 10:17 | disposition home or self-care (01) | DRG 772 ==
LOC: YASAS 12:13 → Y5N 12:19
PROVIDERS: ADMIT Allergy & Immunology; ATTEND Psychiatry & Neurology Pain Medicine
PROC: HZ42ZZZ Group Counseling for Substance Abuse Treatment, Cognitive-Behavioral (ICD-10-PCS; principal; 2023-08-16)
DX: F11.20 Opioid dependence, uncomplicated (principal); F10.20 Alcohol dependence, uncomplicated; G47.30 Sleep apnea, unspecified; I10 Essential (primary) hypertension; E78.2 Mixed hyperlipidemia; L97.811 Non-pressure chronic ulcer of other part of right lower leg limited to breakdown of skin; L97.821 Non-pressure chronic ulcer of other part of left lower leg limited to breakdown of skin; M54.50 Low back pain, unspecified; R60.0 Localized edema
CPT/HCPCS: 36415; 80053; 81003; 82962; 83036; 83735; 83880; 85025; 85610; 85730; 87086; 93005; 93010

== ENCOUNTER 2024-02-14 13:26 | Inpatient (IN) | payer OTHER ==
[2024-02-14 16:52] VITALS: BMI 45.1
[2024-02-14] MEDS ORDERED: ACETAMINOPHEN 325 MG TABLET (FP) PO PRN (17:53)
[2024-02-14] MEDS ORDERED: IBUPROFEN 600 MG TABLET (FP) PO PRN (17:53)
[2024-02-14] MEDS ORDERED: LOPERAMIDE HCL 2 MG CAPSULE PO PRN (17:53)
[2024-02-14] MEDS ORDERED: guaiFENesin 600 MG TABLET.ER (FP) PO PRN (17:53)
[2024-02-14] MEDS ORDERED: DICYCLOMINE HCL 10 MG CAPSULE PO PRN (17:53)
[2024-02-14] MEDS ORDERED: NALOXONE HCL (KLOXXADO) 8 MG SPRAY NS PRN (17:53)
[2024-02-14] MEDS ORDERED: P-EPHED 60MG/TRIPROLIDI 2.5MG TABLET PO PRN (17:53)
[2024-02-14] MEDS ORDERED: ONDANSETRON *ODT* 4 MG TABLET SL PRN (17:53)
[2024-02-14] MEDS ORDERED: IBUPROFEN 400 MG TABLET (FP) PO PRN (17:53)
[2024-02-14] MEDS ORDERED: NALOXONE HCL 0.4 MG/ML VIAL IM PRN (17:53)
[2024-02-14] MEDS ORDERED: POLYETHYLENE GLYCOL (HEALTHYLAX) 3350 17 GM PACKET PO PRN (17:53)
[2024-02-14] MEDS ORDERED: BENZONATATE 200 MG CAPSULE PO PRN (17:53)
[2024-02-14] MEDS ORDERED: BISMUTH SUBSALICYLATE 524 MG/30 ML PO PRN (17:53)
[2024-02-14] MEDS ORDERED: MAG HYDROX/AL HYDROX/SIMETH 30 ML UNIT-DOSE CUP PO PRN (17:53)
[2024-02-14] MEDS ORDERED: BENZOCAINE/MENTHOL (CHLORASEPTIC ) LOZENGE MM PRN (17:53)
[2024-02-14] MEDS ORDERED: MAGNESIUM HYDROX 2400MG/30ML ORAL SUSPENSION 30 ML CUP PO PRN (17:53)
[2024-02-14] MEDS ORDERED: diazePAM 5 MG TABLET ONE (19:34)
[2024-02-14] MEDS: diazePAM 5 MG TABLET PO ONE (19:40)
[2024-02-14] MEDS ORDERED: ALBUTEROL SO4 HFA INHALER IH PRN (20:54)
[2024-02-14] MEDS ORDERED: DOCUSATE SODIUM 100 MG CAPSULE (FP) PO PRN (20:54)
[2024-02-14] MEDS: THIAMINE 100 MG TABLET PO SCH (22:35)
[2024-02-14] MEDS: APIXABAN 5 MG TABLET PO SCH (22:35)
[2024-02-14] MEDS: MELATONIN 5 MG TABLETS PO SCH (22:35)
[2024-02-14] MEDS: ATORVASTATIN CA 40 MG TABLET (FP) PO SCH (22:35)
[2024-02-14] MEDS: diazePAM 5 MG TABLET PO SCH (22:37)
[2024-02-15] MEDS: metFORMIN HCL 500 MG TABLET (FP) PO SCH (06:06)
[2024-02-15] MEDS ORDERED: methaDONE HCL 10 MG TABLET PO SCH (09:45)
[2024-02-15] MEDS: PRENATAL VITAMINS W/ FOLIC ACID TABLET (FP) PO SCH (10:38)
[2024-02-15] MEDS: amLODIPine BESYLATE 5 MG TABLET (FP) PO SCH (10:39)
[2024-02-15] MEDS: LISINOPRIL 10 MG TABLET PO SCH (10:39)
[2024-02-15] MEDS: methaDONE 40 MG, methaDONE 30 MG PO SCH (10:39)
[2024-02-15 12:16] LABS: HEMATOCRIT 31.2 % (35.4-49); HEMOGLOBIN 10.3 GM/dL (11.7-16.9); MCH 30.1 pg (25.7-33.7); MCHC 33.2 g/dl (32.0-35.9); MEAN CELL VOLUME 90.7 fl (80-96); PLATELET COUNT 209 10^3/uL (134-434); RBC 3.44 M/mm3 (4.00-5.60); RDW 15.9 % (11.9-15.9); WHITE BLOOD COUNT 7.7 K/mm3 (4.0-10.0)
[2024-02-15 12:55] LABS: POTASSIUM 4.3 mmol/L (3.5-5.1)
[2024-02-15 12:59] LABS: CALCIUM 9.3 mg/dL (8.5-10.1)
[2024-02-15 13:00] LABS: ALBUMIN 3.1 g/dl (3.4-5.0); BLOOD UREA NITROGEN 66.7 mg/dL (7-18)
[2024-02-15 13:03] LABS: CREATININE 3.2 mg/dL (0.55-1.3)
[2024-02-15 13:05] LABS: BILIRUBIN,TOTAL 1.6 mg/dL (0.2-1); TOT PROT 7.8 g/dl (6.4-8.2)
[2024-02-16] MEDS: diazePAM 5 MG TABLET PO PRN (02:24)
[2024-02-16] MEDS: diazePAM 5 MG TABLET PO SCH (05:32)
[2024-02-17] MEDS: diazePAM 5 MG TABLET PO SCH (06:00)
[2024-02-17] MEDS: VITAMINS A AND D TOPICAL OINTMENT TP SCH (11:21)
[2024-02-17] MEDS: diazePAM 5 MG TABLET PO ONE (22:44)
[2024-02-18] MEDS: diazePAM 5 MG TABLET PO ONE ×2 (05:40→22:38)
[2024-02-20 17:37] LABS: BASO % 0.6 % (0-2.0); EOS % 5.5 % (0-4.5); HEMATOCRIT 29.6 % (35.4-49); HEMOGLOBIN 9.8 GM/dL (11.7-16.9); LYMPH % 16.3 % (8-40); MCH 30.1 pg (25.7-33.7); MEAN CELL VOLUME 91.1 fl (80-96); MEAN PLT VOLUME 7.8 fl (7.5-11.1); MONO % 15.8 % (3.8-10.2); NEUT % 61.8 % (42.8-82.8); PLATELET COUNT 265 10^3/uL (134-434); RBC 3.25 M/mm3 (4.00-5.60); WHITE BLOOD COUNT 6.3 K/mm3 (4.0-10.0)
[2024-02-20 17:47] LABS: CREATININE 2.3 mg/dL (0.55-1.3)
[2024-02-20] MEDS: APIXABAN 2.5 MG TABLET PO SCH (22:42)
[2024-02-21] MEDS: NYSTATIN 100000 UNIT/GM TOPICAL OINTMENT 15 GM TUBE TP SCH (01:58)
[2024-02-21 09:45] VITALS: BP 113/59; PULSE 66; RESP 20; TEMP 96.8
== END 2024-02-21 12:51 | disposition other institution (70) | DRG 773 ==
LOC: YASAS 13:26 → Y3N 19:16 → UNDODISIN 02-20 15:50
PROVIDERS: ADMIT Allergy & Immunology; ATTEND Surgery
PROC: HZ2ZZZZ Detoxification Services for Substance Abuse Treatment (ICD-10-PCS; principal; 2024-02-14)
DX: F10.230 Alcohol dependence with withdrawal, uncomplicated (principal); F11.10 Opioid abuse, uncomplicated; F19.282 Other psychoactive substance dependence with psychoactive substance-induced sleep disorder; F19.280 Other psychoactive substance dependence with psychoactive substance-induced anxiety disorder; G47.33 Obstructive sleep apnea (adult) (pediatric); E78.5 Hyperlipidemia, unspecified; I10 Essential (primary) hypertension; I48.91 Unspecified atrial fibrillation; E11.65 Type 2 diabetes mellitus with hyperglycemia; Z79.84 Long term (current) use of oral hypoglycemic drugs; Z79.01 Long term (current) use of anticoagulants; M17.11 Unilateral primary osteoarthritis, right knee; R26.89 Other abnormalities of gait and mobility; Z86.59 Personal history of other mental and behavioral disorders; Z99.89 Dependence on other enabling machines and devices
CPT/HCPCS: 36415; 80053; 80305; 80307; 82565; 82962; 85025; 85027; 86780; 87811; 93005; 93010

== ENCOUNTER 2024-02-21 13:19 | Inpatient (IN) | payer OTHER ==
[2024-02-21] MEDS ORDERED: IBUPROFEN 400 MG TABLET (FP) PO PRN (15:13)
[2024-02-21] MEDS ORDERED: BENZONATATE 200 MG CAPSULE PO PRN (15:13)
[2024-02-21] MEDS ORDERED: ACETAMINOPHEN 325 MG TABLET (FP) PO PRN (15:13)
[2024-02-21] MEDS ORDERED: BENZOCAINE/MENTHOL (CHLORASEPTIC ) LOZENGE MM PRN (15:13)
[2024-02-21] MEDS ORDERED: NALOXONE HCL 0.4 MG/ML VIAL IVPUSH PRN (15:13)
[2024-02-21] MEDS ORDERED: MAG HYDROX/AL HYDROX/SIMETH 30 ML UNIT-DOSE CUP PO PRN (15:13)
[2024-02-21] MEDS ORDERED: IBUPROFEN 600 MG TABLET (FP) PO PRN (15:13)
[2024-02-21] MEDS ORDERED: LOPERAMIDE HCL 2 MG CAPSULE PO PRN (15:13)
[2024-02-21] MEDS ORDERED: NALOXONE (NYS OPIOID OVERDOSE PROGRAM) 4 MG/0.1 ML SPRAY NS PRN (15:13)
[2024-02-21] MEDS ORDERED: POLYETHYLENE GLYCOL (HEALTHYLAX) 3350 17 GM PACKET PO PRN (15:13)
[2024-02-21] MEDS ORDERED: guaiFENesin 600 MG TABLET.ER (FP) PO PRN (15:13)
[2024-02-21] MEDS ORDERED: MAGNESIUM HYDROX 2400MG/30ML ORAL SUSPENSION 30 ML CUP PO PRN (15:13)
[2024-02-21] MEDS ORDERED: DOCUSATE SODIUM 100 MG CAPSULE (FP) PO PRN (15:16)
[2024-02-21] MEDS ORDERED: ALBUTEROL SO4 HFA INHALER IH PRN (15:16)
[2024-02-21] MEDS ORDERED: TUBERCULIN PPD 5 TU/0.1ML VIAL ID ONE (16:59)
[2024-02-21] MEDS: ATORVASTATIN CA 40 MG TABLET (FP) PO SCH (21:15)
[2024-02-21] MEDS: THIAMINE 100 MG TABLET PO SCH (21:16)
[2024-02-21] MEDS: MELATONIN 5 MG TABLETS PO SCH (21:16)
[2024-02-21] MEDS: APIXABAN 2.5 MG TABLET PO SCH (21:16)
[2024-02-21] MEDS ORDERED: MELATONIN 5 MG TABLETS PO SCH (22:00)
[2024-02-22] MEDS: methaDONE 40 MG, methaDONE 30 MG PO SCH (06:41)
[2024-02-22] MEDS ORDERED: methaDONE HCL 40 MG DISPERSABLE TABLET PO SCH (10:00)
[2024-02-22] MEDS ORDERED: PRENATAL VITAMINS W/ FOLIC ACID TABLET (FP) PO SCH (10:00)
[2024-02-22] MEDS: LISINOPRIL 10 MG TABLET PO SCH (10:47)
[2024-02-22] MEDS: amLODIPine BESYLATE 5 MG TABLET (FP) PO SCH (10:47)
[2024-02-22] MEDS: MIRTAZAPINE 15 MG TABLET (FP) PO SCH (21:39)
[2024-02-22] MEDS: METHOCARBAMOL 500 MG TABLET PO PRN (21:40)
[2024-02-23] MEDS: hydrOXYzine PAMOATE 25 MG CAPSULE (FP) PO PRN (06:53)
[2024-02-26] MEDS: VITAMINS A AND D TOPICAL OINTMENT TP SCH (13:12)
[2024-02-28] MEDS: METHOCARBAMOL 500 MG TABLET PO SCH (11:31)
[2024-02-29] MEDS: METHOCARBAMOL 500 MG TABLET PO SCH (10:46)
[2024-02-29] MEDS: LIDOCAINE 5% TOPICAL PATCH TP SCH (16:10)
[2024-02-29] MEDS: GABAPENTIN 100 MG CAPSULE PO SCH (21:10)
[2024-02-29] MEDS: LIDOCAINE PATCH REMOVAL MC SCH (21:11)
[2024-03-01 14:52] LABS: BASO % 0.8 % (0-2.0); EOS % 6.1 % (0-4.5); HEMATOCRIT 30.3 % (35.4-49); HEMOGLOBIN 9.9 GM/dL (11.7-16.9); LYMPH % 12.7 % (8-40); MCH 29.7 pg (25.7-33.7); MCHC 32.9 g/dl (32.0-35.9); MEAN CELL VOLUME 90.4 fl (80-96); MONO % 4.8 % (3.8-10.2); NEUT % 75.6 % (42.8-82.8); PLATELET COUNT 381 10^3/uL (134-434); RBC 3.35 M/mm3 (4.00-5.60); WHITE BLOOD COUNT 10.2 K/mm3 (4.0-10.0)
[2024-03-01 14:54] LABS: POTASSIUM 4.6 mmol/L (3.5-5.1)
[2024-03-01 14:56] LABS: ALBUMIN 2.7 g/dl (3.4-5.0); BLOOD UREA NITROGEN 24.5 mg/dL (7-18); CALCIUM 9.6 mg/dL (8.5-10.1); MAGNESIUM 1.7 mg/dL (1.8-2.4)
[2024-03-01 14:59] LABS: CREATININE 1.3 mg/dL (0.55-1.3)
[2024-03-01 15:00] LABS: INR 1.24 (0.83-1.09); PROTHROMBIN TIME (PATIENT) 13.9 SEC (9.7-13.0)
[2024-03-01 15:01] LABS: BILIRUBIN,TOTAL 0.3 mg/dL (0.2-1); TOT PROT 7.5 g/dl (6.4-8.2)
[2024-03-04] MEDS: FERROUS SO4 325 MG TABLET (FP) PO SCH (13:39)
[2024-03-04] MEDS: INSULIN ASPART SLIDING SCALE (NOVOLOG) 1 VIAL SQ SCH (16:50)
[2024-03-06 11:52] LABS: PH,URINE 5.5 (5.0-8.0); URINE APPEARANCE CLEAR; URINE BILIRUBIN NEGATIVE (NEGATIVE); URINE COLOR YELLOW; URINE GLUCOSE (UA) TRACE (NEGATIVE); URINE KETONE NEGATIVE (NEGATIVE); URINE LEUK ESTERASE NEGATIVE (NEGATIVE); URINE NITRITE NEGATIVE (NEGATIVE); URINE PROTEIN NEGATIVE (NEGATIVE); URINE UROBILINOGEN 0.2 mg/dL (0.2-1.0)
[2024-03-08] MEDS: amLODIPine BESYLATE 5 MG TABLET (FP) PO ONE (13:57)
[2024-03-08] MEDS: LISINOPRIL 10 MG TABLET PO ONE (13:57)
[2024-03-09] MEDS: LISINOPRIL 20 MG TABLET PO SCH (10:30)
[2024-03-09] MEDS: amLODIPine BESYLATE 10 MG TABLET (FP) PO SCH (10:30)
[2024-03-10] MEDS: COLLAGENASE CLOSTRIDIUM HIST. 30 GRAMS TUBE TP SCH (15:30)
[2024-03-10] MEDS: SILVER SULFADIAZINE 1% TOP CREAM 400 GM JAR TP SCH (18:20)
[2024-03-14] MEDS: CHOLECALCIFEROL (VIT D3) 400 UNIT (10 MCG) TABLET PO SCH (16:28)
[2024-03-15 11:46] LABS: BASO % 0.5 % (0-2.0); EOS % 6.7 % (0-4.5); HEMATOCRIT 28.9 % (35.4-49); HEMOGLOBIN 9.4 GM/dL (11.7-16.9); LYMPH % 15.3 % (8-40); MCH 29.2 pg (25.7-33.7); MCHC 32.5 g/dl (32.0-35.9); MEAN CELL VOLUME 89.9 fl (80-96); MEAN PLT VOLUME 7.3 fl (7.5-11.1); NEUT % 70.5 % (42.8-82.8); PLATELET COUNT 561 10^3/uL (134-434); RBC 3.21 M/mm3 (4.00-5.60); RDW 15.7 % (11.9-15.9); WHITE BLOOD COUNT 9.8 K/mm3 (4.0-10.0)
[2024-03-15 11:51] LABS: POTASSIUM 4.7 mmol/L (3.5-5.1)
[2024-03-15 11:54] LABS: CALCIUM 9.3 mg/dL (8.5-10.1)
[2024-03-15 11:55] LABS: ALBUMIN 2.7 g/dl (3.4-5.0); BLOOD UREA NITROGEN 18.9 mg/dL (7-18)
[2024-03-15 11:58] LABS: CREATININE 1.2 mg/dL (0.55-1.3)
[2024-03-15 11:59] LABS: INR 1.16 (0.83-1.09); PROTHROMBIN TIME (PATIENT) 13.1 SEC (9.7-13.0); TOT PROT 7.6 g/dl (6.4-8.2)
[2024-03-15 12:00] LABS: BILIRUBIN,TOTAL 0.4 mg/dL (0.2-1)
[2024-03-22 06:44] VITALS: TEMP 97.3
[2024-03-22 09:24] VITALS: BP 147/67; PULSE 85; RESP 16
== END 2024-03-22 10:23 | disposition home or self-care (01) | DRG 772 ==
LOC: YASAS 13:19 → Y3W 13:20
PROVIDERS: ADMIT Allergy & Immunology; ATTEND Psychiatry & Neurology Pain Medicine
PROC: HZ42ZZZ Group Counseling for Substance Abuse Treatment, Cognitive-Behavioral (ICD-10-PCS; principal; 2024-02-21)
DX: F10.20 Alcohol dependence, uncomplicated (principal); F11.20 Opioid dependence, uncomplicated; F19.282 Other psychoactive substance dependence with psychoactive substance-induced sleep disorder; F19.280 Other psychoactive substance dependence with psychoactive substance-induced anxiety disorder; G47.33 Obstructive sleep apnea (adult) (pediatric); I10 Essential (primary) hypertension; I48.91 Unspecified atrial fibrillation; E78.5 Hyperlipidemia, unspecified; E11.65 Type 2 diabetes mellitus with hyperglycemia; E11.621 Type 2 diabetes mellitus with foot ulcer; Z79.84 Long term (current) use of oral hypoglycemic drugs; Z79.4 Long term (current) use of insulin; M19.90 Unspecified osteoarthritis, unspecified site; Z96.651 Presence of right artificial knee joint; Z79.01 Long term (current) use of anticoagulants; Z86.59 Personal history of other mental and behavioral disorders; Z99.89 Dependence on other enabling machines and devices
CPT/HCPCS: 36415; 80053; 81003; 82140; 82306; 82962; 83036; 83735; 85025; 85610; 86803